=== PATIENT | male | born 1985 | race Caucasian/White ===

== ENCOUNTER 2016-04-13 13:14 | Emergency (ER) | payer MEDICARE, MEDICAID ==
[~2016-04-13 13:14] MED LIST: /ACETCOD2T PO; /MELO7TA PO; /ONDA4TA PO; LOPI600T PO; MORP5SUP PO; TYLENOL #3 PO; WELLBUTRIN PO; ZANT150T PO; ZOLO100T PO
[2016-04-13] MEDS ORDERED: PROMETHAZINE 25 MG SUPP As Ordered ONE (14:46)
--- NOTE | 2016-04-13 15:15 | EDDOCDS ---
Nurse's Notes [facility] Name: Devon Krishnan Age: 30 yrs Sex: Male : 1985 Arrival Date: 04/13/2016 Time: 13:14 Bed TR1 Private MD: Juan Antonio Inman Diagnosis: Vomiting;Adverse effect of caffeine;Anxiety disorder, unspecified Presentation: 04/13 13:29 Presenting complaint: Patient states: Pt very jittery on presentation. states he took 2 jo3 caffeine pills this morning and became jittery, nauseated, ALVAREZ to occipital area, throat tightness and light headed. The last date and time the patient was known to be well was was at. No acute neurological deficit is noted. Adult Sepsis Screening: The patient does not have new or worsening altered mentation. Patient's respiratory rate is less than 22. Systolic blood pressure is greater than 100. Patient has a qSOFA score of 0- Negative Sepsis Screen. Suicide/Homicide risk assessment- the patient denies having any suicidal and/or homicidal ideations and does not present with any other emotional, behavioral or mental health complaints. 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 Transition of care: patient was not received from another setting of care. 13:29 Acuity: BRITTANIE Level 3 jo3 13:29 Method Of Arrival: Walkin/Carried/Asstd jo3 15:13 The last date and time the patient was known to be well was on an unknown date. jf3 Triage Assessment: 13:32 General: Appears uncomfortable, Behavior is anxious, cooperative. Neurological: Level jo3 of Consciousness is awake, alert. Respiratory: Airway is patent Respiratory effort is even, unlabored. Historical: - Allergies: Ceclor; - Home Meds: 1. Omeprazole Oral once daily 2. Zoloft 100 mg Oral tab 1 tab once daily - PMHx: Anxiety; back pain; Depression; Hypercholesterolemia; Hypertension; Migraine Headaches; Seasonal Allergies; - PSHx: left ear graft; - Social history: No barriers to communication noted, The patient speaks fluent Libyan, Speaks appropriately for age, Smoking status: Electronic cigarettes. - Family history: Not pertinent. - : The pt / caregiver states he / she is not on anticoagulants. Home medication list is obtained from the patient. - Exposure Risk Screening:: None identified. Screenin:10 Screening information is obtained from the patient. Fall risk: No risks identified. jf3 Assistance ADL's: requires no assistance with activities of daily living. Abuse/DV Screen: The patient / caregiver reports he/she is: not in a situation that causes fear, pain or injury. Nutritional screening: No deficits noted. Advance Directives: Currently, there is no health care proxy. There is no active DNR order. home support is adequate. Assessment: 15:10 General: Appears in no apparent distress, comfortable, Behavior is cooperative. Pain: jf3 Location: abdomen Pain currently is 8 out of 10 on a pain scale. Neurological: Level of Consciousness is awake, alert, Oriented to person, place, time. Cardiovascular: Capillary refill < 3 seconds. Respiratory: Airway is patent Respiratory effort is even, unlabored, Respiratory pattern is regular, symmetrical. Derm: Skin is pink, warm & dry. Vital Signs: 13:16 BP 173 / 93; Pulse 118; Resp 18 S; Temp 98.7(O); Pulse Ox 98% on R/A; Weight 89.36 kg gr2 (R); Height 5 ft. 8 in. (172.72 cm) (R); Pain 6/10; 14:59 BP 181 / 110; Pulse 103; Resp 20; Temp 97.9(O); Pulse Ox 95% on R/A; Pain 9/10; jml1 15:10 BP 184 / 112 RA Sitting (man/); jf3 15:10 BP 180 / 110 LA Sitting (man/); jf3 13:16 Body Mass Index 29.95 (89.36 kg, 172.72 cm) gr2 15:10 PA Billy aware jf3 15:10 PA Billy aware, instructed to D/C pt jf3 Vitals: 13:16 Log In Time: April 13, 2016 at 13:16. gr2 ED Course: 13:16 Patient visited by Nikole Pradhan. gr2 13:16 Juan Antonio Inman DO is Private Physician. gr2 13:16 Patient moved to Waiting gr2 13:17 Patient visited by Nikole Pradhan. gr2 13:17 Patient moved to Pre RCE gr2 13:31 Triage Initiated jo3 13:33 Patient visited by Jenna Varela RN. jo3 13:33 Patient moved to PD2 / 27 jo3 13:42 Patient visited by Inocencia Ramirez. nb2 13:42 EKG done. (by ED staff). Reviewed by Rosa Lindsay PA-C. nb2 13:45 Patient moved to TR2 kc3 14:09 Patient moved to Triage 1 jf3 14:16 Eduardo Cervantes PA is PHCP. btw 14:16 Sandeep Burroughs MD is Attending Physician. btw 14:16 Patient visited by Eduardo Cervantes PA. btw 14:41 [facility] is Referral Physician. btw 14:59 Patient visited by Tai Pathak. jml1 15:08 Patient moved to TR1 jf3 15:10 The patient / caregiver is instructed regarding the plan of care and ED course. jf3 15:10 No IV's were initiated during this patient's visit. No procedures done that require jf3 assistance. Administered Medications: 15:00 Drug: Promethazine 25 mg [promethazine 25 mg rectal suppository (1 supp)] {Note: jf3 Dispensed home with pt by GLEN.} Route: MD; Order Results: There are currently no results for this order. Outcome: 14:42 Discharge ordered by Provider. btw 15:10 Discharge Assessment: Patient awake, alert and oriented x 3. No cognitive and/or jf3 functional deficits noted. Patient verbalized understanding of disposition instructions. patient administered narcotics - no. The following High Risk Discharge criteria are identified: None. Discharged to home ambulatory. Condition: good. Discharge instructions given to patient, Instructed on discharge instructions, follow up and referral plans. medication usage, Demonstrated understanding of instructions, medications, Pt was receptive of discharge instructions/ teaching. Prescriptions given X 1. No special radiology studies were completed. Property :Personal belongings accompany Pt. 15:14 Patient left the ED. jf3 Signatures: Jenna Varela RN RN Eduardo Whittaker PA PA btw Tai Pathak jml1 Nikole Pradhan gr2 Claire De SantiagoRN RN kc3 Dutch Diallo RN RN jf3 Inocencia Ramirez nb2 MTDD
--- NOTE | 2016-04-13 15:15 | EDDOCDS ---
Physician Documentation [facility] Name: Devon Krishnan Age: 30 yrs Sex: Male : 1985 Arrival Date: 04/13/2016 Time: 13:14 Bed TR1 Private MD: Juan Antonio Inman Disposition: 04/13/16 14:42 Discharged to Home/Self Care. Impression: Vomiting, Adverse effect of caffeine, Anxiety disorder, unspecified. - Condition is Stable. - Discharge Instructions: Nausea and Vomiting. - Prescriptions for Phenergan 25 mg Rectal Suppository - insert 1 suppository by RECTAL route every 6 hours As needed; 12 suppository. - Medication Reconciliation, Local Pharmacy Hours form. - [facility]; When: Call to arrange an appointment; Reason: Further diagnostic work-up, Recheck today's complaints, Continuance of care. - Problem is new. - Symptoms are unchanged. Historical: - Allergies: Ceclor; - Home Meds: 1. Omeprazole Oral once daily 2. Zoloft 100 mg Oral tab 1 tab once daily - PMHx: Anxiety; back pain; Depression; Hypercholesterolemia; Hypertension; Migraine Headaches; Seasonal Allergies; - PSHx: left ear graft; - Social history: No barriers to communication noted, The patient speaks fluent Nicaraguan, Speaks appropriately for age, Smoking status: Electronic cigarettes. - Family history: Not pertinent. - : The pt / caregiver states he / she is not on anticoagulants. Home medication list is obtained from the patient. - Exposure Risk Screening:: None identified. Vital Signs: 04/13 13:16 BP 173 / 93; Pulse 118; Resp 18 S; Temp 98.7(O); Pulse Ox 98% on R/A; Weight 89.36 kg / gr2 197.01 lbs (R); Height 5 ft. 8 in. (172.72 cm) (R); Pain 6/10; 14:59 BP 181 / 110; Pulse 103; Resp 20; Temp 97.9(O); Pulse Ox 95% on R/A; Pain 9/10; jml1 15:10 BP 184 / 112 RA Sitting (man/); jf3 15:10 BP 180 / 110 LA Sitting (man/); jf3 13:16 Body Mass Index 29.95 (89.36 kg, 172.72 cm) gr2 15:10 GLEN Cervantes aware jf3 15:10 GLEN Cervantes aware, instructed to D/C pt jf3 MDM: 13:35 ECG WITH READING ER PHYS+CARDIAG ordered. EDMS 14:37 Promethazine Suppository 25 mg MN once ordered. btw Administered Medications: 15:00 Drug: Promethazine 25 mg [promethazine 25 mg rectal suppository (1 supp)] {Note: jf3 Dispensed home with pt by PA.} Route: MN; Signatures: Dispatcher [employer] EDMS Jenna Varela,RN RN Eduardo Whittaker PA PA btw Dutch Diallo,RN RN jf3 MTDD
--- NOTE | 2016-04-15 08:55 | ECGEPIP ---
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
--- NOTE | 2016-04-15 16:15 | EDDOCDS ---
Nurse's Notes [facility] Name: Devon Concepcion Age: 30 yrs Sex: Male : 1985 Arrival Date: 04/13/2016 Time: 13:14 Bed TR1 Private MD: Juan Antonio Inman Diagnosis: Vomiting;Adverse effect of caffeine;Anxiety disorder, unspecified Presentation: 04/13 13:29 Presenting complaint: Patient states: Pt very jittery on presentation. states he took 2 jo3 caffeine pills this morning and became jittery, nauseated, ALVAREZ to occipital area, throat tightness and light headed. The last date and time the patient was known to be well was was at. No acute neurological deficit is noted. Adult Sepsis Screening: The patient does not have new or worsening altered mentation. Patient's respiratory rate is less than 22. Systolic blood pressure is greater than 100. Patient has a qSOFA score of 0- Negative Sepsis Screen. Suicide/Homicide risk assessment- the patient denies having any suicidal and/or homicidal ideations and does not present with any other emotional, behavioral or mental health complaints. 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 Transition of care: patient was not received from another setting of care. 13:29 Acuity: BIRTTANIE Level 3 jo3 13:29 Method Of Arrival: Walkin/Carried/Asstd jo3 15:13 The last date and time the patient was known to be well was on an unknown date. jf3 Triage Assessment: 13:32 General: Appears uncomfortable, Behavior is anxious, cooperative. Neurological: Level jo3 of Consciousness is awake, alert. Respiratory: Airway is patent Respiratory effort is even, unlabored. Historical: - Allergies: Ceclor; - Home Meds: 1. Omeprazole Oral once daily 2. Zoloft 100 mg Oral tab 1 tab once daily - PMHx: Anxiety; back pain; Depression; Hypercholesterolemia; Hypertension; Migraine Headaches; Seasonal Allergies; - PSHx: left ear graft; - Social history: No barriers to communication noted, The patient speaks fluent Mauritian, Speaks appropriately for age, Smoking status: Electronic cigarettes. - Family history: Not pertinent. - : The pt / caregiver states he / she is not on anticoagulants. Home medication list is obtained from the patient. - Exposure Risk Screening:: None identified. Screenin:10 Screening information is obtained from the patient. Fall risk: No risks identified. jf3 Assistance ADL's: requires no assistance with activities of daily living. Abuse/DV Screen: The patient / caregiver reports he/she is: not in a situation that causes fear, pain or injury. Nutritional screening: No deficits noted. Advance Directives: Currently, there is no health care proxy. There is no active DNR order. home support is adequate. Assessment: 15:10 General: Appears in no apparent distress, comfortable, Behavior is cooperative. Pain: jf3 Location: abdomen Pain currently is 8 out of 10 on a pain scale. Neurological: Level of Consciousness is awake, alert, Oriented to person, place, time. Cardiovascular: Capillary refill < 3 seconds. Respiratory: Airway is patent Respiratory effort is even, unlabored, Respiratory pattern is regular, symmetrical. Derm: Skin is pink, warm & dry. Vital Signs: 13:16 BP 173 / 93; Pulse 118; Resp 18 S; Temp 98.7(O); Pulse Ox 98% on R/A; Weight 89.36 kg gr2 (R); Height 5 ft. 8 in. (172.72 cm) (R); Pain 6/10; 14:59 BP 181 / 110; Pulse 103; Resp 20; Temp 97.9(O); Pulse Ox 95% on R/A; Pain 9/10; jml1 15:10 BP 184 / 112 RA Sitting (man/); jf3 15:10 BP 180 / 110 LA Sitting (man/); jf3 13:16 Body Mass Index 29.95 (89.36 kg, 172.72 cm) gr2 15:10 PA Billy aware jf3 15:10 PA Billy aware, instructed to D/C pt jf3 Vitals: 13:16 Log In Time: April 13, 2016 at 13:16. gr2 ED Course: 13:16 Patient visited by Nikole Pradhan. gr2 13:16 Juan Antonio Inman DO is Private Physician. gr2 13:16 Patient moved to Waiting gr2 13:17 Patient visited by Nikole Pradhan. gr2 13:17 Patient moved to Pre RCE gr2 13:31 Triage Initiated jo3 13:33 Patient visited by Jenna Varela RN. jo3 13:33 Patient moved to PD2 / 27 jo3 13:42 Patient visited by Inocencia Ramirez. nb2 13:42 EKG done. (by ED staff). Reviewed by Rosa Lindsay PA-C. nb2 13:45 Patient moved to TR2 kc3 14:09 Patient moved to Triage 1 jf3 14:16 Eduardo Cervantes PA is PHCP. btw 14:16 Sandeep Burroughs MD is Attending Physician. btw 14:16 Patient visited by Eduardo Cervantes PA. btw 14:41 [facility] is Referral Physician. btw 14:59 Patient visited by Tai Pathak. jml1 15:08 Patient moved to TR1 jf3 15:10 The patient / caregiver is instructed regarding the plan of care and ED course. jf3 15:10 No IV's were initiated during this patient's visit. No procedures done that require jf3 assistance. 15:48 [facility] [place] was scanned into [employer] and attached to record. lg 04/14 11:30 T-Sheet-- Draft Copy was scanned into [employer] and attached to record. gb 11:31 ECG/EKG was scanned into [employer] and attached to record. gb 04/15 09:17 EKG-ADULT Returned. 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 btw 15:10 Discharge Assessment: Patient awake, alert and oriented x 3. No cognitive and/or jf3 functional deficits noted. Patient verbalized understanding of disposition instructions. patient administered narcotics - no. The following High Risk Discharge criteria are identified: None. Discharged to home ambulatory. Condition: good. Discharge instructions given to patient, Instructed on discharge instructions, follow up and referral plans. medication usage, Demonstrated understanding of instructions, medications, Pt was receptive of discharge instructions/ teaching. Prescriptions given X 1. No special radiology studies were completed. Property :Personal belongings accompany Pt. 15:14 Patient left the ED. jf3 Signatures: Dispatcher [employer] EDMS Anna Hernandez, Reg Reg gb Adina Hernandez, Reg Reg lg Jenna Varela,RN RN jo3 Eduardo Cervantes PA PA btw Tai Pathak jml1 Nikole Pradhan gr2 Claire De Santiago,RN RN kc3 Dutch Diallo,RN RN jf3 Inocencia Ramirez2 Chart Complete MTDD
--- NOTE | 2016-04-15 16:15 | EDDOCDS ---
Physician Documentation [facility] Name: Devon Krishnan Age: 30 yrs Sex: Male : 1985 Arrival Date: 04/13/2016 Time: 13:14 Bed TR1 Private MD: Juan Antonio Inman Disposition: 04/13/16 14:42 Discharged to Home/Self Care. Impression: Vomiting, Adverse effect of caffeine, Anxiety disorder, unspecified. - Condition is Stable. - Discharge Instructions: Nausea and Vomiting. - Prescriptions for Phenergan 25 mg Rectal Suppository - insert 1 suppository by RECTAL route every 6 hours As needed; 12 suppository. - Medication Reconciliation, Local Pharmacy Hours form. - [facility]; When: Call to arrange an appointment; Reason: Further diagnostic work-up, Recheck today's complaints, Continuance of care. - Problem is new. - Symptoms are unchanged. Historical: - Allergies: Ceclor; - Home Meds: 1. Omeprazole Oral once daily 2. Zoloft 100 mg Oral tab 1 tab once daily - PMHx: Anxiety; back pain; Depression; Hypercholesterolemia; Hypertension; Migraine Headaches; Seasonal Allergies; - PSHx: left ear graft; - Social history: No barriers to communication noted, The patient speaks fluent Puerto Rican, Speaks appropriately for age, Smoking status: Electronic cigarettes. - Family history: Not pertinent. - : The pt / caregiver states he / she is not on anticoagulants. Home medication list is obtained from the patient. - Exposure Risk Screening:: None identified. Vital Signs: 04/13 13:16 BP 173 / 93; Pulse 118; Resp 18 S; Temp 98.7(O); Pulse Ox 98% on R/A; Weight 89.36 kg / gr2 197.01 lbs (R); Height 5 ft. 8 in. (172.72 cm) (R); Pain 6/10; 14:59 BP 181 / 110; Pulse 103; Resp 20; Temp 97.9(O); Pulse Ox 95% on R/A; Pain 9/10; jml1 15:10 BP 184 / 112 RA Sitting (man/); jf3 15:10 BP 180 / 110 LA Sitting (man/); jf3 13:16 Body Mass Index 29.95 (89.36 kg, 172.72 cm) gr2 15:10 GLEN Cervantes aware jf3 15:10 GLEN Cervantes aware, instructed to D/C pt jf3 MDM: 13:35 ECG WITH READING ER PHYS+CARDIAG ordered. EDMS 14:37 Promethazine Suppository 25 mg [place] once ordered. btw 15:48 [facility] [place] was scanned into [employer] and attached to record. lg 04/14 11:30 T-Sheet-- Draft Copy was scanned into [employer] and attached to record. gb 11:31 ECG/EKG was scanned into [employer] and attached to record. gb Administered Medications: 04/13 15:00 Drug: Promethazine 25 mg [promethazine 25 mg rectal suppository (1 supp)] {Note: jf3 Dispensed home with pt by PA.} Route: CA; Signatures: Dispatcher [employer] EDMS Anna Hernandez, Reg Reg gb Adina Hernandez, Reg Reg lg Jenna Varela,RN RN Eduardo Whittaker PA PA btw Dutch Diallo,RN RN jf3 The chart was reviewed and I authenticate all verbal orders and agree with the evaluation and treatment provided.Attachments: 15:48 [facility] [place] 04/14 11:30 T-Sheet-- Draft Copy gb 11:31 ECG/EKG gb Chart Complete MTDD
--- NOTE | 2016-04-15 16:15 | EDDOCDS ---
Physician Documentation [facility] Name: Devon Krishnan Age: 30 yrs Sex: Male : 1985 Arrival Date: 04/13/2016 Time: 13:14 Bed TR1 Private MD: Juan Antonio Inman Disposition: 04/13/16 14:42 Discharged to Home/Self Care. Impression: Vomiting, Adverse effect of caffeine, Anxiety disorder, unspecified. - Condition is Stable. - Discharge Instructions: Nausea and Vomiting. - Prescriptions for Phenergan 25 mg Rectal Suppository - insert 1 suppository by RECTAL route every 6 hours As needed; 12 suppository. - Medication Reconciliation, Local Pharmacy Hours form. - Follow up: [facility]; When: Call to arrange an appointment; Reason: Further diagnostic work-up, Recheck today's complaints, Continuance of care. - Problem is new. - Symptoms are unchanged. Historical: - Allergies: Ceclor; - Home Meds: 1. Omeprazole Oral once daily 2. Zoloft 100 mg Oral tab 1 tab once daily - PMHx: Anxiety; back pain; Depression; Hypercholesterolemia; Hypertension; Migraine Headaches; Seasonal Allergies; - PSHx: left ear graft; - Social history: No barriers to communication noted, The patient speaks fluent Australian, Speaks appropriately for age, Smoking status: Electronic cigarettes. - Family history: Not pertinent. - : The pt / caregiver states he / she is not on anticoagulants. Home medication list is obtained from the patient. - Exposure Risk Screening:: None identified. Vital Signs: 04/13 13:16 BP 173 / 93; Pulse 118; Resp 18 S; Temp 98.7(O); Pulse Ox 98% on R/A; Weight 89.36 kg / gr2 197.01 lbs (R); Height 5 ft. 8 in. (172.72 cm) (R); Pain 6/10; 14:59 BP 181 / 110; Pulse 103; Resp 20; Temp 97.9(O); Pulse Ox 95% on R/A; Pain 9/10; jml1 15:10 BP 184 / 112 RA Sitting (man/); jf3 15:10 BP 180 / 110 LA Sitting (man/); jf3 13:16 Body Mass Index 29.95 (89.36 kg, 172.72 cm) gr2 15:10 GLEN Cervantes aware jf3 15:10 GLEN Cervantes aware, instructed to D/C pt jf3 MDM: 13:35 ECG WITH READING ER PHYS+CARDIAG ordered. EDMS 14:37 Promethazine Suppository 25 mg CA once ordered. btw 15:48 [facility] [place] was scanned into [employer] and attached to record. lg 04/14 11:30 T-Sheet-- Draft Copy was scanned into [employer] and attached to record. gb 11:31 ECG/EKG was scanned into [employer] and attached to record. gb Administered Medications: 04/13 15:00 Drug: Promethazine 25 mg [promethazine 25 mg rectal suppository (1 supp)] {Note: jf3 Dispensed home with pt by PA.} Route: CA; Signatures: Dispatcher [employer] EDMS Anna Hernandez, Reg Reg gb Adina Hernandez, Reg Reg lg Jenna Varela,RN RN Eduardo Whittaker PA PA btw Dutch Diallo,RN RN jf3 The chart was reviewed and I authenticate all verbal orders and agree with the evaluation and treatment provided.Attachments: 15:48 [facility] [place] Agreement 04/14 11:30 T-Sheet-- Draft Copy gb 11:31 ECG/EKG gb Chart Complete MTDD
== END 2016-04-13 15:14 | disposition home or self-care (01) ==
LOC: M ED 13:14
DX: F41.9 Anxiety disorder, unspecified (principal); T43.615A Adverse effect of caffeine, initial encounter; R11.10 Vomiting, unspecified; M54.9 Dorsalgia, unspecified; F32.9 Major depressive disorder, single episode, unspecified; E78.00 Pure hypercholesterolemia, unspecified; I10 Essential (primary) hypertension; G43.909 Migraine, unspecified, not intractable, without status migrainosus; J30.9 Allergic rhinitis, unspecified; F17.210 Nicotine dependence, cigarettes, uncomplicated; Z79.899 Other long term (current) drug therapy; Z88.1 Allergy status to other antibiotic agents

== ENCOUNTER 2016-11-11 15:42 | Emergency (ER) | payer MEDICARE, MEDICAID ==
[~2016-11-11] VITALS: Ht 172.7 cm; Wt 85.5 kg
[2016-11-11 15:42] VITALS: BP 164/83
[2016-11-11] MEDS ORDERED: ZOLO50TA PO (15:55)
[2016-11-11] MEDS ORDERED: OMEP20CA3 PO (15:55)
[2017-01-06] MEDS ORDERED: TRAM50TA2 PO (10:48)
[2017-01-06] MEDS ORDERED: INVE234I IM (11:03)
[2017-01-06] MEDS ORDERED: ROZE8TAB16 PO (11:03)
[2017-01-06] MEDS ORDERED: AKWASOL OU (11:03)
[2017-01-07] MEDS ORDERED: PROP80TA PO (10:33)
[2017-01-13] MEDS ORDERED: PROP20TA PO (12:08)
[2017-01-13] MEDS ORDERED: BENZ-52 PO (12:08)
[2017-01-13] MEDS ORDERED: PANT40TA2 PO (12:08)
[2017-01-13] MEDS ORDERED: DEPA500T2 PO (12:08)
[2017-01-13] MEDS ORDERED: DIPH50CA PO (12:08)
== END 2016-11-11 17:10 | disposition left against medical advice (07) ==
LOC: M ED 15:42
DX: R10.9 Unspecified abdominal pain (principal)

== ENCOUNTER → 2016-11-25 | Outpatient (REF) | payer MEDICARE, MEDICAID ==
[~2016-11-25] MED LIST changes: +AKWASOL OU; +BACL10TA2 PO; +BENZ-52 PO; +CALC500T49 PO; +DEPA250T2 PO; +DEPA500T2 PO; +DEPLCAP PO; +DIPH50CA PO; +FISH1000 PO; +INVE234I IM; +NICO21PAT TD; +OMEP20CA3 PO; +PALI1TAB2 PO; +PANT40TA2 PO; +PROP20TA PO; +PROP80TA PO; +ROZE8TAB16 PO; +TRAM50TA2 PO; +ZOLO50TA PO; +[UNRECOGNIZED DRUG - CODE] PO
[2016-11-25 12:01] LABS: BASO % 0.3 % (0.0-1.0); EOS # 0.2 K/mm3 (0.0-0.50); EOS % 2.6 % (0.0-3.0); LARGE UNSTAINED CELL # 0.1 K/mm3 (0.0-0.4); LARGE UNSTAINED CELL % 1.3 % (0.0-4.0); LYMPH # 2.1 K/mm3 (1.5-4.5); LYMPH % 27.1 % (24.0-44.0); MEAN CORPUSCULAR HEMOGLOBIN 30.2 pg (27.0-33.0); MEAN CORPUSCULAR HGB CONC 35.3 g/dl (32.0-36.5); MEAN CORPUSCULAR VOLUME 85.7 fl (80.0-96.0); MONO # 0.3 K/mm3 (0.0-0.8); MONO % 4.4 % (0.0-5.0); NEUTROPHILS % 64.3 % (36.0-66.0); PLATELET COUNT, AUTOMATED 211 k/mm3 (150-450); WHITE BLOOD COUNT 7.7 K/mm3 (4.0-10.0)
[2016-11-25 12:53] LABS: ANION GAP 11 MEQ/L (8-16); BLOOD UREA NITROGEN 17 MG/DL (7-18); CALCIUM LEVEL 9.1 MG/DL (8.5-10.1); CARBON DIOXIDE LEVEL 26 MEQ/L (21-32); CHLORIDE LEVEL 106 MEQ/L (98-107); CHOLESTEROL LEVEL 196 MG/DL (<200); FREE T4 1.05 NG/DL (0.76-1.46); GLOMERULAR FILTRATION RATE > 60.0 (>60); GLUCOSE, FASTING 85 MG/DL (70-105); POTASSIUM SERUM 4.3 MEQ/L (3.5-5.1); SODIUM LEVEL 143 MEQ/L (136-145); TRIGLYCERIDES LEVEL 219 MG/DL (<150)
== END ==
LOC: M SFHCPLAZ 09:22
PROVIDERS: ATTEND Family Medicine
DX: Z00.00 Encounter for general adult medical examination without abnormal findings (principal); G47.9 Sleep disorder, unspecified; M62.830 Muscle spasm of back; Z11.3 Encounter for screening for infections with a predominantly sexual mode of transmission; Z79.899 Other long term (current) drug therapy
CPT/HCPCS: 36415; 80048; 80061; 83036; 84439; 84443; 85025; 87389; 87491; 87591; G0463

== ENCOUNTER 2016-12-15 23:22 | Inpatient (IN) | payer MEDICARE, MEDICAID ==
[~2016-12-15] VITALS: Ht 172.7 cm; Wt 87.0 kg
[~2016-12-15 23:22] MED LIST changes: -AKWASOL OU; -BACL10TA2 PO; -BENZ-52 PO; -CALC500T49 PO; -DEPA250T2 PO; -DEPA500T2 PO; -DEPLCAP PO; -DIPH50CA PO; -FISH1000 PO; -INVE234I IM; -NICO21PAT TD; -PALI1TAB2 PO; -PANT40TA2 PO; -PROP20TA PO; -PROP80TA PO; -ROZE8TAB16 PO; -TRAM50TA2 PO; -[UNRECOGNIZED DRUG - CODE] PO
[2016-12-15] MEDS ORDERED: DEPLCAP PO (23:51)
[2016-12-16 00:41] LABS: MEAN CORPUSCULAR HEMOGLOBIN 28.9 pg (27.0-33.0); MEAN CORPUSCULAR HGB CONC 34.3 g/dl (32.0-36.5); MEAN CORPUSCULAR VOLUME 84.3 fl (80.0-96.0); RED CELL DISTRIBUTION WIDTH 12.3 % (11.5-14.5); WHITE BLOOD COUNT 9.3 10^3/uL (4.0-10.0)
[2016-12-16] MEDS ORDERED: MOM 30ML SUSPENSION UDC PO PRN (00:45)
[2016-12-16] MEDS ORDERED: traZODone 50 MG TAB PO PRN ×2 (00:45→11:30)
[2016-12-16 01:10] LABS: METHADONE URINE NEGATIVE (NEGATIVE)
[2016-12-16 01:19] LABS: ALBUMIN 4.2 GM/DL (3.2-5.2); ALBUMIN/GLOBULIN RATIO 1.31 (1.00-1.93); ALKALINE PHOSPHATASE 49 U/L (45-117); ALT/SGPT 31 U/L (12-78); ANION GAP 6 MEQ/L (8-16); AST/SGOT 16 U/L (15-37); BILIRUBIN,DIRECT 0.1 MG/DL (0.0-0.2); BILIRUBIN,TOTAL 0.4 MG/DL (0.2-1.0); BLOOD UREA NITROGEN 10 MG/DL (7-18); CALCIUM LEVEL 8.6 MG/DL (8.5-10.1); CARBON DIOXIDE LEVEL 29 MEQ/L (21-32); CHLORIDE LEVEL 108 MEQ/L (98-107); CREATININE FOR GFR 0.81 MG/DL (0.70-1.30); GLOMERULAR FILTRATION RATE > 60.0 (>60); GLUCOSE, FASTING 97 MG/DL (70-105); POTASSIUM SERUM 3.8 MEQ/L (3.5-5.1); SODIUM LEVEL 143 MEQ/L (136-145); TOTAL PROTEIN 7.4 GM/DL (6.4-8.2)
[2016-12-16] MEDS ORDERED: FISH1000 PO (01:26)
[2016-12-16] MEDS ORDERED: [UNRECOGNIZED DRUG - CODE] PO (01:26)
[2016-12-16] MEDS ORDERED: BACL10TA2 PO (01:26)
[2016-12-16] MEDS ORDERED: CALC500T49 PO (01:26)
[2016-12-16] MEDS ORDERED: ACETAMINOPHEN 325 MG TAB PO ONE (02:00)
[2016-12-16] MEDS ORDERED: NICOTINE 21MG/24HR 1 EA TRANSDERMAL TD ONE (02:15)
[2016-12-16 04:35] VITALS: BP 140/89
[2016-12-16] MEDS ORDERED: NICOTINE 21MG/24HR 1 EA TRANSDERMAL TD SCH (09:00)
--- NOTE | 2016-12-16 10:25 | HPEPDOC ---
[facility] Medical History & Physical Date of Admission Dec 15, 2016 History and Physical PCP: [facility] ATTENDING: Dr. Ed Villagran HPI: 31yoM admitted to [facility] for unspecified depressive disorder, being medically examined today. No acute medical complaints today. Denies any fevers, chills, weakness, fatigue, ALVAREZ, CP, SOB, cough, palpitations, abdominal pain, N/V /D or changes in bowel or bladder habits. PMHx: Depression Anxiety PTSD Insomnia GERD Colitis/history of ileus 01/23 Vertigo Chronic headache TMJ dysfunction PSHX: History of tympanostomy tubes and graft as child Dental surgery SOCHX: Resides in: [facility] Marital Status: Single Kids: 1 Employment: Disabled Tobacco use: Vape ETOH: History of alcohol use Illicit Drugs: Denies IV Drug Use: Denies Tattoos done unprofessionally: Denies FAMHX: Mother: , bone cancer Father: Alive, history of CVA Children: [id number] daughter Alive, well ROS: As noted in HPI, otherwise 11pt ROS of systems reviewed and unremarkable. PE: GEN: 31 yo M, appears stated age. Well-nourished, well developed. No acute distress. Alert and oriented x 3. Pleasant, interactive. HEENT: Normocephalic, atraumatic. Pupils are equal, round, and reactive to light. Extraocular movements are intact. No nystagmus appreciated. Sclera are nonicteric. Conjunctiva without injection. Nose midline. Nasal turbinates without bogginess. EACs both patent BL. TMs both visualized and eduardo with good cone of light, no bulging or erythema. No facial asymmetry. Moist mucous membranes. Dentition fair. Pharynx pink and moist, no cobblestoning. Neck supple , trachea midline. No lymphadenopathy or thyromegaly appreciated. CHEST: Regular rate and rhythm, +S1, +S2 LUNGS: Clear to auscultation bilaterally. No wheezes, rales, or rhonchi. Breathing appears symmetric and easy. Patient is speaking in full sentences. No accessory muscle use. ABD: Round, soft, non-tender, non-distended. +Bowel sounds throughout. No rebound or guarding. No costovertebral angle tenderness. EXT: Pulses 2+ bilaterally dorsalis pedis and radial. No lower extremity edema appreciated. SKIN: [place], dry, warm. Capillary refill <2sec. No rashes. NEURO: Alert and oriented x 3. Cranial nerves III-XII are intact. No focal deficits appreciated. EKG: pending. A&P: 31yoM admitted to [facility] for unspecified depressive disorder 1. Psych. Plan per Psychiatry.Obtain baseline EKG to assure the safety of psychiatric medications as they can prolong the QT interval. 2. Nicotine dependence. Patch available. 3. GERD. Continue Prilosec 20 mg by mouth daily. 4. Follow up with PCP on discharge. 5. TMJ dysfunction/chronic headache. Continue Tylenol 650 mg every 4 hours as needed. 6. Staff member Ed present throughout exam. Vital Signs Vital Signs Date Time Temp Pulse Resp B/P (MAP) Pulse Ox O2 Delivery O2 Flow Rate FiO2 12/16/16 04:35 97.8 70 22 140/89 (106) 99 Room Air Laboratory Data Labs 24H Laboratory Tests 2 12/16/16 00:18: Anion Gap 6L, Glomerular Filtration Rate > 60.0, Calcium Level 8.6, Aspartate Amino Transf (AST/SGOT) 16, Alanine Aminotransferase (ALT/SGPT) 31, Alkaline Phosphatase 49, Total Bilirubin 0.4, Direct Bilirubin 0.1, Total Protein 7.4, Albumin 4.2, Albumin/Globulin Ratio 1.31, Thyroid Stimulating Hormone (TSH) 1.020, Salicylates Level < 1.7L, Acetaminophen Level < 2.0L, Ethyl Alcohol Level < 0.003 12/16/16 00:26: Urine Amphetamines Screen NEGATIVE, Urine Benzodiazepines Screen NEGATIVE, Urine Opiates Screen NEGATIVE, Urine Methadone Screen NEGATIVE, Urine Barbiturates Screen NEGATIVE, Urine Phencyclidine Screen NEGATIVE, Urine Cocaine Metabolite Screen NEGATIVE, Urine Cannabinoids Screen NEGATIVE CBC/BMP Laboratory Tests 12/16/16 00:18 Red Blood Count 5.53, Mean Corpuscular Volume 84.3, Mean Corpuscular Hemoglobin 28.9, Mean Corpuscular Hemoglobin Concent 34.3, Red Cell Distribution Width 12.3 Home Medications Scheduled (Deplin 15 15-90.314 mg) 1 Cap Cap, 1 CAP PO DAILY Baclofen (Baclofen) 10 Mg Tab, 10 MG PO BID Calcium (Calcium) 500 Mg Tab, 500 MG PO DAILY Fish Oil (Fish Oil) 1,000 Mg Cap, 2,000 MG PO DAILY Omeprazole (Omeprazole) 20 Mg Cap, 20 MG PO QHS Scheduled PRN (Gas Relief Ultra Strength) 180 Mg Cap, 180 MG PO Q8H PRN for GAS PAIN Allergies Coded Allergies: Cephalosporins (Verified Allergy, Mild, 06/11/12) Cefaclor (Verified Allergy, Unknown, rash, 11/11/16) Grapefruit (Verified Allergy, Unknown, 12/15/16) [place] Tree (Verified Allergy, Unknown, 12/15/16) Sasha Guardado Dec 16, 2016 10:25
[2016-12-16] MEDS: NICOTINE 21MG/24HR 1 EA TRANSDERMAL TD SCH (10:35)
[2016-12-16] MEDS: LIDOCAINE 5% (LIDODERM) PATCH TD SCH (12:27)
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
[2016-12-16] MEDS: DIVALPROEX 250MG *ER* TAB PO SCH ×2 (16:08→20:06)
[2016-12-16] MEDS: POLYVINYL ALCOHOL OPHTH SOLN 15 ML(LIQUITEARS) OU PRN ×2 (17:02→20:07)
[2016-12-16] MEDS: ACETAMINOPHEN TAB 650MG DOSE (2X325MG) PO PRN (17:04)
--- NOTE | 2016-12-16 17:43 | ECGEPIP ---
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
[2016-12-16 18:00] VITALS: BP 140/70
[2016-12-16] MEDS: RAMELTEON 8 MG TAB (ROZEREM) PO PRN (20:06)
[2016-12-16] MEDS: PALIPERIDONE 3 MG ER TAB (INVEGA) PO SCH (20:06)
[2016-12-16] MEDS: **NOTE PATIENT COMMENT** MISC XX SCH (20:43)
[2016-12-16] MEDS ORDERED: RAMELTEON 8 MG TAB (ROZEREM) PO SCH (21:00)
[2016-12-17 06:59] VITALS: BP 125/70
[2016-12-17] MEDS: LIDOCAINE 5% (LIDODERM) PATCH TD SCH (08:16)
[2016-12-17] MEDS: ACETAMINOPHEN TAB 650MG DOSE (2X325MG) PO PRN (08:16)
[2016-12-17] MEDS: NICOTINE 21MG/24HR 1 EA TRANSDERMAL TD SCH (08:16)
[2016-12-17] MEDS: DIVALPROEX 250MG *ER* TAB PO SCH ×3 (08:18→20:35)
[2016-12-17 11:07] VITALS: BP 148/85
[2016-12-17] MEDS: MAALOX 30 ML SUSP *UDC PO PRN (11:20)
--- NOTE | 2016-12-17 15:33 | MHIPNPDOC ---
[facility] Progress Note Progress Note DATE OF SERVICE: 12/17/16 HISTORY: . Patient is a 31-year-old male, who had a long psychiatric history, including Bipolar, MDD, PTSD, anxiety admitted due to active ideas to kill himself. He endorses numerous methods he has thought of to kill himself over the last several days. He has elicited paranoid delusions as reported. Patient is isolated, guarded, with constricted-blunted affect. Reported being ok, denied any current ideas of self harm or side effects of medications. VITAL SIGNS: See below. NEW TEST RESULTS: . CURRENT MEDICATIONS: See below. MENTAL STATUS EXAMINATION: General appearance: Patient is a 31-year old male, who is anxious, irritable, makes poor eye contact. Speech: , increased rate, rhythm, normal volume Thought processes: tangential Thought content: denies SI/HI, denies auditory hallucinations or other perceptual disturbances, no delusions elicited Abstract reasoning and computation: poor Description of associations: good Description of abnormal or psychotic thoughts: . Judgment: poor Insight: poor Orientation: A/O x 3 Recent and remote memory: Intact Attention span and concentration: decreased Fund of knowledge: below average Mood: "ok" Affect: constricted, almost blunted DIAGNOSES: 1. .schizoaffective disorder bipolar type versus depressive type, r/o bipolar disorder 2. . 3. . MANAGEMENT PLAN: . Continue current medications/treatment individual supportive therapy, group therapy, milleu therapy Discharge plan as per primary team TIME SPENT: 25 minutes. Vital Signs Vital Signs Date Time Temp Pulse Resp B/P (MAP) Pulse Ox O2 Delivery O2 Flow Rate FiO2 12/17/16 11:07 66 14 148/85 (106) 95 Room Air 12/17/16 06:59 97.4 Current Medications Current Medications Acetaminophen (Tylenol Tab) 650 mg Q6HP PRN PO HEADACHE or DISCOMFORT Last administered on 12/17/16 08:16; Start 12/16/16 at 00:45; Stop 01/15/17 at 00:44 Al Hydrox/Mg Hydrox/Simethicone (Mylanta) 30 ml Q4HP PRN PO HEARTBURN/ INDIGESTION Last administered on 12/17/16 11:20; Start 12/16/16 at 00:45; Stop 01/15/17 at 00:44 Artificial Tears (Akwa Tears) 2 drop TIDP PRN OU DRY EYES Last administered on 12/16/16 20:07; Start 12/16/16 at 11:30; Stop 01/15/17 at 11:29 Divalproex Sodium (Depakote Er) 250 mg TID PO Last administered on 12/17/16 08 :18; Start 12/16/16 at 16:00; Stop 01/15/17 at 15:59 Home Med (Med Rec Complete!) ASDIRECTED XX ; Start 12/16/16 at 01:30; Stop 12/16/16 at 01:31; Status DC Lidocaine (Lidoderm Patch) 1 patch DAILY TD Last administered on 12/17/16 08: 16; Start 12/16/16 at 09:00; Stop 01/15/17 at 08:59 Magnesium Hydroxide (Milk Of Magnesia) 30 ml DAILYPRN PRN PO CONSTIPATION; Start 12/16/16 at 00:45; Stop 01/15/17 at 00:44 Nicotine (Nicoderm Cq 21mg) 1 patch DAILY TD ; Start 12/16/16 at 09:00; Stop at 09:00; Status DC Nicotine (Nicoderm Cq 21mg) 1 patch DAILY TD Last administered on 12/17/16 08: 16; Start 12/16/16 at 09:00; Stop 01/15/17 at 08:59 Non-Formulary Medication ( See Comment Field Below ) REMOVE LIDODERM PATCH DAILY@21 XX Last administered on 12/16/16 20:43; Start 12/16/16 at 21:00; Stop 01/15/17 at 20:59 Paliperidone (Invega) 3 mg QHS PO Last administered on 12/16/16 20:06; Start 12/16/16 at 21:00; Stop 01/15/17 at 20:59 Ramelteon (Rozerem) 8 mg QHS PO ; Start 12/16/16 at 21:00; Stop 12/16/16 at 21: 00; Status DC Ramelteon (Rozerem) 8 mg QHS PRN PO INSOMNIA Last administered on 12/16/16 20: 06; Start 12/16/16 at 21:00; Stop 01/15/17 at 20:59 Trazodone HCl (Desyrel) 50 mg QHSP PRN PO INSOMNIA; Start 12/16/16 at 00:45; Stop 01/15/17 at 00:44; Status Cancel Trazodone HCl (Desyrel) 75 mg QHSP PRN PO INSOMNIA; Start 12/16/16 at 11:30; Stop 01/15/17 at 11:29; Status Cancel Allergies Coded Allergies: Cephalosporins (Verified Allergy, Mild, 06/11/12) Cefaclor (Verified Allergy, Unknown, rash, 11/11/16) Grapefruit (Verified Allergy, Unknown, 12/15/16) [place] Tree (Verified Allergy, Unknown, 12/15/16) HEVER JAY MD Dec 17, 2016 15:26
[2016-12-17] MEDS: POLYVINYL ALCOHOL OPHTH SOLN 15 ML(LIQUITEARS) OU PRN (16:19)
[2016-12-17] MEDS: PALIPERIDONE 3 MG ER TAB (INVEGA) PO SCH (20:34)
[2016-12-17] MEDS: RAMELTEON 8 MG TAB (ROZEREM) PO PRN (20:34)
[2016-12-17] MEDS: **NOTE PATIENT COMMENT** MISC XX SCH (21:45)
[2016-12-18 06:39] VITALS: BP 115/56
[2016-12-18] MEDS: DIVALPROEX 250MG *ER* TAB PO SCH ×4 (09:06→20:26)
[2016-12-18] MEDS: NICOTINE 21MG/24HR 1 EA TRANSDERMAL TD SCH (09:07)
[2016-12-18] MEDS: LIDOCAINE 5% (LIDODERM) PATCH TD SCH (09:09)
[2016-12-18] MEDS: **NOTE PATIENT COMMENT** MISC XX SCH (10:02)
[2016-12-18] MEDS: ACETAMINOPHEN TAB 650MG DOSE (2X325MG) PO PRN ×2 (11:15→17:58)
--- NOTE | 2016-12-18 14:52 | MHIPNPDOC ---
[facility] Progress Note Progress Note DATE OF SERVICE: 12/18/16 HISTORY: . Patient is a 31-year-old male, who had a long psychiatric history, including Bipolar, MDD, PTSD, anxiety admitted due to active ideas to kill himself. He has elicited paranoid delusions as reported. Patient is isolated, guarded, with constricted-blunted affect. Reported being ok, denied any current ideas of self harm or side effects of medications. VITAL SIGNS: See below. NEW TEST RESULTS: . CURRENT MEDICATIONS: See below. MENTAL STATUS EXAMINATION: General appearance: Patient is a 31-year old male, who is anxious, irritable, makes poor eye contact. Speech: , increased rate, rhythm, normal volume Thought processes: tangential Thought content: denies SI/HI, denies auditory hallucinations or other perceptual disturbances, no delusions elicited Abstract reasoning and computation: poor Description of associations: good Description of abnormal or psychotic thoughts: . Judgment: poor Insight: poor Orientation: A/O x 3 Recent and remote memory: Intact Attention span and concentration: decreased Fund of knowledge: below average Mood: "ok" Affect: constricted, almost blunted DIAGNOSES: 1. .schizoaffective disorder bipolar type versus depressive type, r/o bipolar disorder 2. . 3. . MANAGEMENT PLAN: . Continue current medications/treatment individual supportive therapy, group therapy, milleu therapy Discharge plan as per primary team TIME SPENT: 25 minutes. Vital Signs Vital Signs Date Time Temp Pulse Resp B/P (MAP) Pulse Ox O2 Delivery O2 Flow Rate FiO2 12/18/16 06:39 97.8 66 18 115/56 (75) 12/17/16 11:07 95 Room Air Current Medications Current Medications Acetaminophen (Tylenol Tab) 650 mg Q6HP PRN PO HEADACHE or DISCOMFORT Last administered on 12/18/16 11:15; Start 12/16/16 at 00:45; Stop 01/15/17 at 00:44 Al Hydrox/Mg Hydrox/Simethicone (Mylanta) 30 ml Q4HP PRN PO HEARTBURN/ INDIGESTION Last administered on 12/17/16 11:20; Start 12/16/16 at 00:45; Stop 01/15/17 at 00:44 Artificial Tears ([place]wa Tears) 2 drop TIDP PRN OU DRY EYES Last administered on 12/17/16 16:19; Start 12/16/16 at 11:30; Stop 01/15/17 at 11:29 Divalproex Sodium (Depakote Er) 250 mg TID PO Last administered on 12/18/16 09 :06; Start 12/16/16 at 16:00; Stop 01/15/17 at 15:59 Home Med (Med Rec Complete!) ASDIRECTED XX ; Start 12/16/16 at 01:30; Stop 12/16/16 at 01:31; Status DC Lidocaine (Lidoderm Patch) 1 patch DAILY TD Last administered on 12/18/16 09: 09; Start 12/16/16 at 09:00; Stop 01/15/17 at 08:59 Magnesium Hydroxide (Milk Of Magnesia) 30 ml DAILYPRN PRN PO CONSTIPATION Last administered on 12/18/16 12:28; Start 12/16/16 at 00:45; Stop 01/15/17 at 00:44 Nicotine (Nicoderm Cq 21mg) 1 patch DAILY TD ; Start 12/16/16 at 09:00; Stop at 09:00; Status DC Nicotine (Nicoderm Cq 21mg) 1 patch DAILY TD Last administered on 12/18/16 09: 07; Start 12/16/16 at 09:00; Stop 01/15/17 at 08:59 Non-Formulary Medication ( See Comment Field Below ) REMOVE LIDODERM PATCH DAILY@21 XX Last administered on 12/18/16 10:02; Start 12/16/16 at 21:00; Stop 01/15/17 at 20:59 Paliperidone (Invega) 3 mg QHS PO Last administered on 12/17/16 20:34; Start 12/16/16 at 21:00; Stop 01/15/17 at 20:59 Ramelteon (Rozerem) 8 mg QHS PO ; Start 12/16/16 at 21:00; Stop 12/16/16 at 21: 00; Status DC Ramelteon (Rozerem) 8 mg QHS PRN PO INSOMNIA Last administered on 12/17/16 20: 34; Start 12/16/16 at 21:00; Stop 01/15/17 at 20:59 Trazodone HCl (Desyrel) 50 mg QHSP PRN PO INSOMNIA; Start 12/16/16 at 00:45; Stop 01/15/17 at 00:44; Status Cancel Trazodone HCl (Desyrel) 75 mg QHSP PRN PO INSOMNIA; Start 12/16/16 at 11:30; Stop 01/15/17 at 11:29; Status Cancel Allergies Coded Allergies: Cephalosporins (Verified Allergy, Mild, 06/11/12) Cefaclor (Verified Allergy, Unknown, rash, 11/11/16) Grapefruit (Verified Allergy, Unknown, 12/15/16) [place] Tree (Verified Allergy, Unknown, 12/15/16) HEVER JAY MD Dec 18, 2016 14:51
[2016-12-18 18:00] VITALS: BP 170/77
[2016-12-18] MEDS: PALIPERIDONE 3 MG ER TAB (INVEGA) PO SCH (20:26)
[2016-12-18] MEDS: RAMELTEON 8 MG TAB (ROZEREM) PO PRN (21:10)
[2016-12-19] MEDS: NICOTINE 21MG/24HR 1 EA TRANSDERMAL TD SCH (07:58)
[2016-12-19] MEDS: LIDOCAINE 5% (LIDODERM) PATCH TD SCH (07:59)
[2016-12-19] MEDS: DIVALPROEX 250MG *ER* TAB PO SCH (07:59)
[2016-12-19] MEDS: ACETAMINOPHEN TAB 650MG DOSE (2X325MG) PO PRN ×2 (08:02→21:14)
[2016-12-19] MEDS: MAALOX 30 ML SUSP *UDC PO PRN (16:24)
[2016-12-19 18:00] VITALS: BP 132/61
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
[2016-12-19] MEDS: RAMELTEON 8 MG TAB (ROZEREM) PO PRN (20:46)
[2016-12-19] MEDS ORDERED: DIVALPROEX 250MG *ER* TAB PO SCH (21:00)
[2016-12-19] MEDS: **NOTE PATIENT COMMENT** MISC XX SCH (21:00)
[2016-12-19] MEDS ORDERED: PALIPERIDONE 3 MG ER TAB (INVEGA) PO SCH (21:00)
[2016-12-20 06:51] VITALS: BP 150/69
[2016-12-20] MEDS: NICOTINE 21MG/24HR 1 EA TRANSDERMAL TD SCH (08:03)
[2016-12-20] MEDS: LIDOCAINE 5% (LIDODERM) PATCH TD SCH ×2 (08:05→09:53)
[2016-12-20] MEDS ORDERED: PALIPERIDONE PALMITATE 234 MG/1.5 ML INJ (INVEGA SUSTENNA)(J2426) IM SCH (09:00)
[2016-12-20] MEDS ORDERED: DIVALPROEX 250MG *ER* TAB PO SCH ×2 (09:00)
[2016-12-20] MEDS: MAALOX 30 ML SUSP *UDC PO PRN (11:20)
[2016-12-20] MEDS: ACETAMINOPHEN TAB 650MG DOSE (2X325MG) PO PRN (14:03)
[2016-12-20] MEDS ORDERED: PALI1TAB2 PO (14:17)
[2016-12-20] MEDS ORDERED: AKWASOL OU (14:17)
[2016-12-20] MEDS ORDERED: INVE234I IM (14:17)
[2016-12-20] MEDS ORDERED: DEPA250T2 PO ×2 (14:17)
[2016-12-20] MEDS ORDERED: ROZE8TAB16 PO (14:17)
[2016-12-20] MEDS ORDERED: NICO21PAT TD (14:17)
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
[2017-01-06] MEDS ORDERED: TRAM50TA2 PO (10:48)
[2017-01-06] MEDS ORDERED: INVE234I IM (11:03)
[2017-01-06] MEDS ORDERED: AKWASOL OU (11:03)
[2017-01-06] MEDS ORDERED: ROZE8TAB16 PO (11:03)
[2017-01-07] MEDS ORDERED: PROP80TA PO (10:33)
[2017-01-13] MEDS ORDERED: DEPA500T2 PO (12:08)
[2017-01-13] MEDS ORDERED: PANT40TA2 PO (12:08)
[2017-01-13] MEDS ORDERED: PROP20TA PO (12:08)
[2017-01-13] MEDS ORDERED: DIPH50CA PO (12:08)
[2017-01-13] MEDS ORDERED: BENZ-52 PO (12:08)
== END 2016-12-20 15:35 | disposition home or self-care (01) | DRG 882 ==
LOC: M ED 23:22 → M ED INP 12-16 00:44 → M PSY 12-16 04:35
PROVIDERS: ADMIT Psychiatry & Neurology Psychiatry; ATTEND Psychiatry & Neurology Psychiatry
DX: F43.10 Post-traumatic stress disorder, unspecified (principal); K21.9 Gastro-esophageal reflux disease without esophagitis; F25.9 Schizoaffective disorder, unspecified; F31.9 Bipolar disorder, unspecified; M26.69 Other specified disorders of temporomandibular joint; R51 Headache; F41.9 Anxiety disorder, unspecified; F84.9 Pervasive developmental disorder, unspecified; Z79.899 Other long term (current) drug therapy; Z88.1 Allergy status to other antibiotic agents; Z91.048 Other nonmedicinal substance allergy status; Z88.8 Allergy status to other drugs, medicaments and biological substances

== ENCOUNTER → 2016-12-22 | Outpatient (CLI) | payer MEDICARE, MEDICAID ==
[~2016-12-22] MED LIST changes: +AKWASOL OU; +BACL10TA2 PO; +BENZ-52 PO; +CALC500T49 PO; +DEPA250T2 PO; +DEPA500T2 PO; +DEPLCAP PO; +DIPH50CA PO; +FISH1000 PO; +INVE234I IM; +NICO21PAT TD; +PALI1TAB2 PO; +PANT40TA2 PO; +PROP20TA PO; +PROP80TA PO; +ROZE8TAB16 PO; +TRAM50TA2 PO; +[UNRECOGNIZED DRUG - CODE] PO
[2016-12-22 13:34] LABS: BASO % 0.2 % (0.0-1.0); EOS # 0.2 10^3/uL (0.0-0.50); EOS % 1.4 % (0.0-3.0); IMMATURE GRANULOCYTE % 0.3 % (0-0); LYMPH # 1.8 10^3/uL (1.5-4.5); LYMPH % 17.1 % (24.0-44.0); MEAN CORPUSCULAR HEMOGLOBIN 28.1 pg (27.0-33.0); MEAN CORPUSCULAR HGB CONC 33.1 g/dl (32.0-36.5); MEAN CORPUSCULAR VOLUME 84.8 fl (80.0-96.0); MONO # 0.5 10^3/uL (0.0-0.8); MONO % 4.8 % (0.0-5.0); NEUTROPHILS # 8.2 10^3/uL (1.8-7.7); NEUTROPHILS % 76.2 % (36.0-66.0); PLATELET COUNT, AUTOMATED 174 10^3/uL (150-450); WHITE BLOOD COUNT 10.8 10^3/uL (4.0-10.0)
[2016-12-22 14:18] LABS: ALBUMIN 3.8 GM/DL (3.2-5.2); ALBUMIN/GLOBULIN RATIO 1.19 (1.00-1.93); ALKALINE PHOSPHATASE 51 U/L (45-117); ALT/SGPT 31 U/L (12-78); ANION GAP 8 MEQ/L (8-16); AST/SGOT 16 U/L (15-37); BILIRUBIN,DIRECT 0.1 MG/DL (0.0-0.2); BILIRUBIN,TOTAL 0.4 MG/DL (0.2-1.0); BLOOD UREA NITROGEN 14 MG/DL (7-18); CARBON DIOXIDE LEVEL 28 MEQ/L (21-32); CHLORIDE LEVEL 105 MEQ/L (98-107); CREATININE FOR GFR 0.77 MG/DL (0.70-1.30); GLOMERULAR FILTRATION RATE > 60.0 (>60); GLUCOSE, FASTING 133 MG/DL (70-105); POTASSIUM SERUM 3.8 MEQ/L (3.5-5.1); SODIUM LEVEL 141 MEQ/L (136-145)
== END ==
LOC: M LAB 12-21 12:07
PROVIDERS: ATTEND Psychiatry & Neurology Psychiatry
DX: F25.9 Schizoaffective disorder, unspecified (principal); F43.10 Post-traumatic stress disorder, unspecified; Z51.81 Encounter for therapeutic drug level monitoring; Z79.899 Other long term (current) drug therapy

== ENCOUNTER 2017-01-29 13:04 | Emergency (ER) | payer MEDICARE, MEDICAID ==
[~2017-01-29] VITALS: Ht 172.7 cm; Wt 86.4 kg
[2017-01-29 14:39] LABS: MEAN CORPUSCULAR HEMOGLOBIN 28.8 pg (27.0-33.0); MEAN CORPUSCULAR HGB CONC 33.9 g/dl (32.0-36.5); PLATELET COUNT, AUTOMATED 163 10^3/uL (150-450); RED CELL DISTRIBUTION WIDTH 12.1 % (11.5-14.5); WHITE BLOOD COUNT 6.8 10^3/uL (4.0-10.0)
[2017-01-29 14:58] LABS: METHADONE URINE NEGATIVE (NEGATIVE)
[2017-01-29 15:09] LABS: ALBUMIN 3.8 GM/DL (3.2-5.2); ALBUMIN/GLOBULIN RATIO 1.19 (1.00-1.93); ALKALINE PHOSPHATASE 45 U/L (45-117); ALT/SGPT 22 U/L (12-78); ANION GAP 5 MEQ/L (8-16); AST/SGOT 8 U/L (7-37); BILIRUBIN,DIRECT < 0.1 MG/DL (0.0-0.2); BILIRUBIN,TOTAL 0.4 MG/DL (0.2-1.0); BLOOD UREA NITROGEN 10 MG/DL (7-18); CALCIUM LEVEL 8.6 MG/DL (8.5-10.1); CARBON DIOXIDE LEVEL 30 MEQ/L (21-32); CHLORIDE LEVEL 109 MEQ/L (98-107); CREATININE FOR GFR 0.83 MG/DL (0.70-1.30); GLOMERULAR FILTRATION RATE > 60.0 (>60); GLUCOSE, FASTING 83 MG/DL (70-105); POTASSIUM SERUM 4.1 MEQ/L (3.5-5.1); SODIUM LEVEL 144 MEQ/L (136-145)
[2017-01-29] MEDS ORDERED: LORazepam 1 MG TAB PO STA (15:55)
[2017-01-29 16:51] VITALS: BP 146/90
== END 2017-01-29 16:54 | disposition home or self-care (01) ==
LOC: M ED 13:04
DX: F41.9 Anxiety disorder, unspecified (principal); Z79.899 Other long term (current) drug therapy
CPT/HCPCS: 36415; 80048; 80076; 80164; 80307; 84443; 85027; 99284; G0480

== ENCOUNTER 2017-02-18 18:00 | Emergency (ER) | payer MEDICARE, MEDICAID ==
[~2017-02-18] VITALS: Ht 172.7 cm; Wt 87.3 kg
[2017-02-18] MEDS ORDERED: NS 1,000 ML IV SCH (18:31)
[2017-02-18] MEDS ORDERED: GASTROGRAFIN SOLUTION 30ML (Q9963) As Ordered ONE (18:40)
[2017-02-18] MEDS ORDERED: MORPHINE 4 MG/ML 1ML SYRINGE IV ONE (18:45)
[2017-02-18] MEDS ORDERED: ONDANSETRON 4MG/2ML VIAL (J2405) IV ONE (18:45)
[2017-02-18] MEDS ORDERED: PROMETHAZINE INJ 25 MG/ML VIAL (J2550) IV ONE (19:00)
[2017-02-18] MEDS ORDERED: GASTROGRAFIN SOLUTION 30ML (Q9963) PO ONE ×2 (19:00→19:30)
[2017-02-18 19:04] LABS: BASO # 0.1 10^3/uL (0.0-0.2); BASO % 0.3 % (0.0-1.0); EOS # 0.3 10^3/uL (0.0-0.50); IMMATURE GRANULOCYTE % 0.5 % (0-0); LYMPH # 4.4 10^3/uL (1.5-4.5); LYMPH % 26.8 % (24.0-44.0); MEAN CORPUSCULAR HEMOGLOBIN 29.2 pg (27.0-33.0); MEAN CORPUSCULAR HGB CONC 33.9 g/dl (32.0-36.5); MEAN CORPUSCULAR VOLUME 86.2 fl (80.0-96.0); MONO # 1.3 10^3/uL (0.0-0.8); MONO % 7.9 % (0.0-5.0); NEUTROPHILS # 10.2 10^3/uL (1.8-7.7); NEUTROPHILS % 62.5 % (36.0-66.0); PLATELET COUNT, AUTOMATED 280 10^3/uL (150-450); RED CELL DISTRIBUTION WIDTH 12.2 % (11.5-14.5); WHITE BLOOD COUNT 16.3 10^3/uL (4.0-10.0)
[2017-02-18 19:16] LABS: ALBUMIN 4.5 GM/DL (3.2-5.2); ALBUMIN/GLOBULIN RATIO 1.15 (1.00-1.93); ALKALINE PHOSPHATASE 50 U/L (45-117); ALT/SGPT 21 U/L (12-78); ANION GAP 10 MEQ/L (8-16); AST/SGOT 12 U/L (7-37); BILIRUBIN,DIRECT 0.2 MG/DL (0.0-0.2); BILIRUBIN,TOTAL 0.9 MG/DL (0.2-1.0); BLOOD UREA NITROGEN 13 MG/DL (7-18); CALCIUM LEVEL 8.8 MG/DL (8.5-10.1); CARBON DIOXIDE LEVEL 27 MEQ/L (21-32); CHLORIDE LEVEL 104 MEQ/L (98-107); CREATININE FOR GFR 0.93 MG/DL (0.70-1.30); GLOMERULAR FILTRATION RATE > 60.0 (>60); GLUCOSE, FASTING 109 MG/DL (70-105); POTASSIUM SERUM 4.2 MEQ/L (3.5-5.1); SODIUM LEVEL 141 MEQ/L (136-145); TOTAL PROTEIN 8.4 GM/DL (6.4-8.2)
[2017-02-18] MEDS ORDERED: ISOVUE-370 76% 100ML VIAL (Q9967) As Ordered ONE (20:11)
--- NOTE | 2017-02-18 20:50 | REPUSA ---
CT of the abdomen and pelvis with contrast Clinical statement: Pain. Technique: Multiple axial CT images were obtained from the base of the lungs through the floor of the pelvis utilizing 5 mm axial slices after administration of oral and nonionic intravenous contrast. C oronal and sagittal reconstructions were also obtained. Comparison: 10/19/2014. Findings: Chest: The visualized lung bases are clear. Abdomen: The liver, spleen, pancreas, kidneys, gallbladder, and adrenal glands are unremarkable. The aorta is within normal limits. There is no evidence of abdominal lymphadenopathy or ascites. Pelvis: The bowel is unremarkable, with no obstructive or inflammatory changes. The appendix is malinda l. The urinary bladder is within normal limits. The other pelvic structures appear grossly intact. Th ere is no evidence of pelvic lymphadenopathy or ascites. Bones: There are no suspicious osseous abnormalities seen. Impression: Unremarkable CT examination of the abdomen and pelvis.
[2017-02-18] MEDS ORDERED: PROM12.55 PO (21:00)
[2017-02-18 21:33] VITALS: BP 134/73
== END 2017-02-18 22:13 | disposition home or self-care (01) ==
LOC: M ED 18:00
DX: R11.10 Vomiting, unspecified (principal); R19.7 Diarrhea, unspecified
CPT/HCPCS: 74177; 80048; 80076; 80164; 83690; 85025; 87507; 96374; 96375; 99284; Q9963; Q9967

== ENCOUNTER → 2017-02-24 | Outpatient (REF) | payer MEDICARE, MEDICAID ==
[~2017-02-24] MED LIST changes: +PROM12.55 PO
[2017-02-24 16:05] LABS: BASO % 0.4 % (0.0-1.0); EOS # 0.5 10^3/uL (0.0-0.50); EOS % 5.1 % (0.0-3.0); IMMATURE GRANULOCYTE % 0.8 % (0-0); LYMPH # 2.9 10^3/uL (1.5-4.5); LYMPH % 27.5 % (24.0-44.0); MEAN CORPUSCULAR HEMOGLOBIN 28.3 pg (27.0-33.0); MEAN CORPUSCULAR HGB CONC 33.3 g/dl (32.0-36.5); MEAN CORPUSCULAR VOLUME 84.9 fl (80.0-96.0); MONO % 8.9 % (0.0-5.0); NEUTROPHILS # 6.1 10^3/uL (1.8-7.7); NEUTROPHILS % 57.3 % (36.0-66.0); PLATELET COUNT, AUTOMATED 213 10^3/uL (150-450); RED CELL DISTRIBUTION WIDTH 12.5 % (11.5-14.5); WHITE BLOOD COUNT 10.6 10^3/uL (4.0-10.0)
[2017-02-24 16:25] LABS: ANION GAP 7 MEQ/L (8-16); BLOOD UREA NITROGEN 17 MG/DL (7-18); CALCIUM LEVEL 8.5 MG/DL (8.5-10.1); CARBON DIOXIDE LEVEL 27 MEQ/L (21-32); CHLORIDE LEVEL 107 MEQ/L (98-107); CREATININE FOR GFR 0.74 MG/DL (0.70-1.30); GLOMERULAR FILTRATION RATE > 60.0 (>60); GLUCOSE, FASTING 77 MG/DL (70-105); POTASSIUM SERUM 3.8 MEQ/L (3.5-5.1); SODIUM LEVEL 141 MEQ/L (136-145)
== END ==
LOC: M SFHCPLAZ 14:44
DX: R19.7 Diarrhea, unspecified (principal)

== ENCOUNTER 2017-04-06 21:43 | Emergency (ER) | payer MEDICARE, MEDICAID | END 2017-04-07 02:32 | disposition left against medical advice (07) | LOC: M ED 21:43 | DX: Z53.29 Procedure and treatment not carried out because of patient's decision for other reasons (principal) ==

== ENCOUNTER → 2017-04-10 | Outpatient (REF) | payer MEDICARE, MEDICAID ==
[2017-04-10 17:40] LABS: ALBUMIN/GLOBULIN RATIO 1.29 (1.00-1.93); ALKALINE PHOSPHATASE 46 U/L (45-117); ALT/SGPT 27 U/L (12-78); AST/SGOT 15 U/L (7-37); BILIRUBIN,DIRECT 0.1 MG/DL (0.0-0.2); BILIRUBIN,TOTAL 0.5 MG/DL (0.2-1.0); CHOLESTEROL LEVEL 156 MG/DL (<200); CHOLESTEROL RISK RATIO 5.379 (<5); HDL CHOLESTEROL 29 MG/DL (>40); LDL CHOLESTEROL 47.2 MG/DL (<100); LIPASE 137 U/L (73-393); NON-HDL-C 127 MG/DL; TOTAL PROTEIN 7.1 GM/DL (6.4-8.2); TRIGLYCERIDES LEVEL 399 MG/DL (<150)
[2017-04-10 18:57] LABS: BASO % 0.3 % (0.0-1.0); EOS # 0.4 10^3/uL (0.0-0.50); EOS % 4.6 % (0.0-3.0); HEMATOCRIT 44.4 % (42.0-52.0); HEMOGLOBIN 15.3 g/dl (14.0-18.0); IMMATURE GRANULOCYTE # 0.1 10^3/uL (0-0); IMMATURE GRANULOCYTE % 0.5 % (0-0); LYMPH # 3.4 10^3/uL (1.5-4.5); LYMPH % 34.8 % (24.0-44.0); MEAN CORPUSCULAR HEMOGLOBIN 29.9 pg (27.0-33.0); MEAN CORPUSCULAR HGB CONC 34.5 g/dl (32.0-36.5); MEAN CORPUSCULAR VOLUME 86.7 fl (80.0-96.0); MONO # 0.7 10^3/uL (0.0-0.8); MONO % 7.6 % (0.0-5.0); NEUTROPHILS % 52.2 % (36.0-66.0); PLATELET COUNT, AUTOMATED 226 10^3/uL (150-450); RED BLOOD COUNT 5.12 10^6/uL (4.30-6.10); RED CELL DISTRIBUTION WIDTH 12.5 % (11.5-14.5); WHITE BLOOD COUNT 9.7 10^3/uL (4.0-10.0)
[2017-04-10 20:19] LABS: ESTIMATED AVERAGE GLUCOSE 108 MG/DL (60-110); HEMOGLOBIN A1c 5.4 %
== END ==
LOC: M LABDRAWP 16:31
DX: F25.1 Schizoaffective disorder, depressive type (principal); F43.10 Post-traumatic stress disorder, unspecified; Z79.899 Other long term (current) drug therapy
CPT/HCPCS: 83690

== ENCOUNTER 2017-04-20 09:16 | Outpatient (RCR) | payer MEDICARE, MEDICAID | END 2017-05-10 | LOC: M PT 09:16 | DX: Z51.89 Encounter for other specified aftercare (principal); M54.41 Lumbago with sciatica, right side | CPT/HCPCS: 97110 ==

== ENCOUNTER → 2017-08-03 | Outpatient (CLI) | payer MEDICARE, MEDICAID ==
[2017-08-03 16:31] LABS: BASO % 0.3 % (0.0-1.0); EOS # 0.1 10^3/uL (0.0-0.50); EOS % 1.2 % (0.0-3.0); HEMOGLOBIN 16.3 g/dl (13.5-17.5); IMMATURE GRANULOCYTE % 0.3 % (0-3.0); LYMPH # 1.7 10^3/uL (1.5-4.5); LYMPH % 26.9 % (24.0-44.0); MEAN CORPUSCULAR HEMOGLOBIN 28.6 pg (27.0-33.0); MEAN CORPUSCULAR VOLUME 84.4 fl (80.0-96.0); MONO # 0.8 10^3/uL (0.0-0.8); MONO % 12.8 % (0.0-5.0); NEUTROPHILS # 3.8 10^3/uL (1.8-7.7); NEUTROPHILS % 58.5 % (36.0-66.0); PLATELET COUNT, AUTOMATED 187 10^3/uL (150-450); RED BLOOD COUNT 5.69 10^6/uL (4.30-6.10); RED CELL DISTRIBUTION WIDTH 11.9 % (11.5-14.5); WHITE BLOOD COUNT 6.4 10^3/uL (4.0-10.0)
[2017-08-03 16:52] LABS: ALBUMIN 4.3 GM/DL (3.2-5.2); ALBUMIN/GLOBULIN RATIO 1.23 (1.00-1.93); ALKALINE PHOSPHATASE 60 U/L (45-117); ALT/SGPT 30 U/L (12-78); ANION GAP 8 MEQ/L (8-16); AST/SGOT 20 U/L (7-37); BILIRUBIN,TOTAL 0.6 MG/DL (0.2-1.0); BLOOD UREA NITROGEN 12 MG/DL (7-18); CALCIUM LEVEL 8.9 MG/DL (8.5-10.1); CARBON DIOXIDE LEVEL 27 MEQ/L (21-32); CHLORIDE LEVEL 105 MEQ/L (98-107); CREATININE FOR GFR 0.92 MG/DL (0.70-1.30); FREE T4 0.95 NG/DL (0.76-1.46); GLOMERULAR FILTRATION RATE > 60.0 (>60); GLUCOSE, FASTING 79 MG/DL (70-100); POTASSIUM SERUM 3.8 MEQ/L (3.5-5.1); SODIUM LEVEL 140 MEQ/L (136-145); THYROID STIMULATING HORMONE 0.615 uIU/ML (0.358-3.740); TOTAL PROTEIN 7.8 GM/DL (6.4-8.2)
[2017-08-09 00:06] LABS: Lyme Disease IgG/IgM Antibodie <0.91 ISR (0.00-0.90); Lyme Disease IgM Ab Quantitati <0.80 index (0.00-0.79)
== END ==
LOC: M WUC 13:22
DX: R53.83 Other fatigue (principal)
CPT/HCPCS: 84443

== ENCOUNTER → 2017-12-05 | Outpatient (REF) | payer MEDICARE, MEDICAID ==
[2017-12-05 15:40] LABS: HEMATOCRIT 50.9 % (42.0-52.0); HEMOGLOBIN 16.9 g/dl (13.5-17.5); MEAN CORPUSCULAR HEMOGLOBIN 28.9 pg (27.0-33.0); MEAN CORPUSCULAR HGB CONC 33.2 g/dl (32.0-36.5); PLATELET COUNT, AUTOMATED 238 10^3/uL (150-450); RED BLOOD COUNT 5.85 10^6/uL (4.30-6.10); RED CELL DISTRIBUTION WIDTH 13.2 % (11.5-14.5)
[2017-12-05 16:17] LABS: ERYTHROCYTE SEDIMENTATION RATE 2 mm/hr (0-15)
[2017-12-05 17:13] LABS: CPK CREATINE PHOSPHOKINASE 36 U/L (39-308)
== END ==
LOC: M SFHCPLAZ 14:08
DX: R52 Pain, unspecified (principal); F41.9 Anxiety disorder, unspecified
CPT/HCPCS: 82550

== ENCOUNTER → 2018-08-28 | Outpatient (REF) | payer MEDICARE, MEDICAID ==
[~2018-08-28] MED LIST changes: -/ACETCOD2T PO; -/MELO7TA PO; -/ONDA4TA PO; +ACET1TAB15 PO; +MOBI4TAB PO; +ONDA-1 PO; -PANT40TA2 PO; +PANT40TA3 PO; -PROM12.55 PO; +PROM12.56 PO; +TYLE500T78 PO
[2018-08-28 16:44] LABS: FREE T4 0.88 NG/DL (0.76-1.46); THYROID STIMULATING HORMONE 0.623 uIU/ML (0.358-3.740)
[2018-08-29 09:54] LABS: THYROID PEROXIDASE ANTIBODY 30.8 U/ML (<60.0)
[2018-09-04 00:06] LABS: THYROID STIMULATING IMMUNOGLOB <0.10 IU/L (0.00-0.55); TSH RECEPTOR ASSAY 0.57 IU/L (0.00-1.75)
== END ==
LOC: M SFHCPLAZ 14:42
PROVIDERS: ATTEND Family Medicine
DX: H05.243 Constant exophthalmos, bilateral (principal)
CPT/HCPCS: 36415; 83519; 84439; 84443; 84445; 86376; G0463

== ENCOUNTER → 2019-05-24 | Outpatient (REF) | payer MEDICARE, MEDICAID ==
[~2019-05-24] MED LIST changes: +OMEP1CAP73 PO; -OMEP20CA3 PO
[2019-05-24 13:41] LABS: ALBUMIN 4.3 GM/DL (3.2-5.2); ALT/SGPT 37 U/L (12-78); BILIRUBIN,TOTAL 0.5 MG/DL (0.2-1.0); BLOOD UREA NITROGEN 21 MG/DL (7-18); CALCIUM LEVEL 9.1 MG/DL (8.5-10.1); CARBON DIOXIDE LEVEL 26 MEQ/L (21-32); CHLORIDE LEVEL 105 MEQ/L (98-107); CHOLESTEROL LEVEL 202 MG/DL (<200); CHOLESTEROL RISK RATIO 5.611 (<5); CREATININE FOR GFR 0.94 MG/DL (0.70-1.30); FREE T4 1.11 NG/DL (0.76-1.46); GLOMERULAR FILTRATION RATE > 60.0 (>60); GLUCOSE, FASTING 94 MG/DL (70-100); HDL CHOLESTEROL 36 MG/DL (>40); LDL CHOLESTEROL 107 MG/DL (<100); NON-HDL-C 166 MG/DL; POTASSIUM SERUM 4.2 MEQ/L (3.5-5.1); SODIUM LEVEL 138 MEQ/L (136-145); THYROID STIMULATING HORMONE 0.512 uIU/ML (0.358-3.740); TOTAL 25(OH) VITAMIN D 24.5 NG/ML (30.0-100.0); TOTAL PROTEIN 7.7 GM/DL (6.4-8.2); TRIGLYCERIDES LEVEL 293 MG/DL (<150)
== END ==
LOC: M SFHCPLAZ 11:32
PROVIDERS: ATTEND Nurse Practitioner Family
DX: Z13.220 Encounter for screening for lipoid disorders (principal); Z13.21 Encounter for screening for nutritional disorder; G43.709 Chronic migraine without aura, not intractable, without status migrainosus; E66.9 Obesity, unspecified; Z79.899 Other long term (current) drug therapy

== ENCOUNTER → 2019-09-12 | Outpatient (CLI) | payer MEDICARE, MEDICAID ==
--- NOTE | 2019-09-12 13:47 | REP ---
Bilateral TIB-fib views. History: Anterior lower leg pain after walking 28 miles 2 weeks ago. Findings: There are focal areas of periosteal reaction in the medial cortex of each proximal tibia consistent with stress fracture with healing. There is also similar chronic periosteal reaction at the proximal metaphysis of the fibula on the left. No acute fracture is seen. No bony destructive lesion is seen. Impression: Findings consistent with bilateral proximal tibial and left proximal fibular healing stress fractures. Electronically Signed by Rupert Schafer MD 09/12/2019 01:38 P
== END ==
LOC: M WUC 13:17
PROVIDERS: ATTEND Physician Assistant
DX: M79.661 Pain in right lower leg (principal); M79.662 Pain in left lower leg

== ENCOUNTER → 2020-02-20 | Outpatient (REF) | payer MEDICARE ==
[~2020-02-20] MED LIST changes: +PANT40TA29 PO; -PANT40TA3 PO
== END ==
LOC: M LAB REF 15:47
PROVIDERS: ATTEND Nurse Practitioner Family
DX: R30.0 Dysuria (principal)

== ENCOUNTER → 2020-04-19 | Outpatient (CLI) | payer MEDICARE ==
[~2020-04-19] MED LIST changes: +KLON1TAB PO; +SERT50TA29 PO
== END ==
LOC: M LABSMTC 08:00
PROVIDERS: ATTEND Anesthesiology
DX: Z01.812 Encounter for preprocedural laboratory examination (principal); Z20.822 Contact with and (suspected) exposure to COVID-19

== ENCOUNTER 2020-04-24 08:36 | Day surgery (SDC) | payer MEDICARE ==
[~2020-04-24] VITALS: Ht 175.3 cm; Wt 92.5 kg
[~2020-04-24 08:36] MED LIST changes: +LIDOCAINE 2% 100MG/5ML SDV (FOR ANES.) As Ordered ONE; +NS 1,000 ML IV ONE; +fentaNYL 100 MCG/2 ML INJECTION (J3010) As Ordered ONE; +propofoL 200 MG/20 ML VIAL As Ordered ONE
--- OUTSIDE RECORDS SUMMARY | 2020-04-24 08:41 | CCD ---
Author Author [facility] ems Organization [facility] ems Address Unknown Phone Unavailable Care Team Providers Care Studio Hand Name Role Phone Catarina Dee Unavailable PROBLEMS Type Condition ICD9-CM Code [id number] Code Onset Dates Condition S tatus W/U Status Risk SNOMED Code Notes Problem Chronic migraine without aur a without status migrainosus, not intractable G43.709 Active confirmed 521650917 Problem Other allergic rhinitis J30.89 Active confirmed 548670620 Problem Anxiety F41.9 Active confirmed 51050394 Problem Acute suppurative otitis med ia of left ear without spontaneous rupture of tympanic membrane, recurrence not specified H66.002 Act veronique confirmed 60581489 Problem Adjustment disorder with depressed mood F43.21 Active confirmed 72995448 Problem Akathisia G25.71 Active confirmed 174623883 Problem Ear infection H66.90 Active confirmed 031133 001 Problem Skin pain R20.8 Active confirmed 509444002 Problem Other atopic dermatitis L20.89 Active confirmed 88474350 Problem Atopic dermatitis and related condition L20.9 Active confirmed 54877329 Problem Vitamin D deficiency E55.9 Active confirmed 49946849 Problem 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 Active confirmed 623123244 Problem Mixed hyperlipidemia E78.2 Active confirmed 558464200 Problem Other chronic pain G89.29 Active confirmed 8 2531239 Problem Constant exophthalmos of both eyes H05.243 Activ e confirmed 26880227 Problem Chronic GERD K21.9 Active confirmed 9796910 09 Problem BMI 30.0-30.9,adult Z68.30 Active confirmed 553084066 Problem Obesity (BMI 30-39.9) E66.9 Active confirmed 291461539 ALLERGIES Allergen (clinical drug ingredient) Drug/Non Drug Allergy do cumented on EMR Reaction Allergy Type Onset Date Status Grapefruit Hives Non Drug Allergy Active ceclor Anaphylaxis Drug Allergy Active paliperidone Invega Sustenna([facility] Code:[address]-98) Akathisia Drug Allergy Active ENCOUNTERS from 1984 to 2020-04-20 Encounter Location Date Provider Diagnosis [facility] Nara [address] [place] [address] 04 Apr, 2 021 [facility] IMMUNIZATIONS Vaccine Route Administration Date Status TDAP IM Intramuscular Apr 21, 2015 Administered Influenza (6mo & up) Fluzone IM Intramuscular Dec 02, 2014 Ad ministered SOCIAL HISTORY Tobacco Use: Social History Observation Description Date Details (start date - stop date) Former Smoker Sex Assigned At : Social History Observation Description Sex Assigned At Unknown Education: Question Answer Notes Level of Education: High School Audit Question Answer Notes Total Score: 0 Interpretation: Alcohol Education Language: Question Answer Notes Languages spoken: Telugu Adventist: Question Answer Notes Adventist 33 None Drug and Alcohol Question Answer Notes Total Score: 0 Interpretation: No problems reported BMI Care Goal Follow-Up Question Answer Notes Above Normal BMI Follow-Up Dietary management educatio n, guidance, and counseling Tobacco Use: Question Answer Notes Are you a: former smoker uses vap cig Additional Findings: Tobacco User Moderate cigarette smoker (10-19 cigs/day) REASON FOR REFERRAL No Information VITAL SIGNS No information MEDICATIONS Medication SIG (Take, Route, Frequency, Duration) Notes Start Da te End Date Status Pantoprazole Sodium 40 MG 1 tablet Orally Once a day for 90 Active ProAir HFA 108 (90 Base) mcg/act 2 puffs as needed Inh alation before bedtime for 30 day(s) Sep, Active Melatonin 10 MG as directed Orally at bed night for 30 day(s) Jun, Not-Taking Vitamin D3 25 MCG (1000 UT) 1 tablet Orally Once a day for 30 da y(s) Jun, Active Clonazepam 1 mg 1 tablet Orally Once a day as needed for 30 Active Aquaphor - as directed Externally as directed for 30 days Aug, Not-Taking Hydrocortisone 2.5 % 1 application to affected ar ea Externally to affected areas of body/face Twice a day for 30 days Aug, Not-Taking Epinastine HCl 0.05 % 1 drop into affected eye Oph thalmic Twice a day for 30 days Sep, Not-Taking Zoloft 50 MG 1 tablet Orally Once a day Active Ketoconazole 2 % as directed Externally 2-3x/week x 4 weeks for 30 day(s) Dec, Not-Taking Montelukast Sodium 10 MG 1 tablet Orally Once a day for 30 day(s ) Sep, Not-Taking Fish Oil 1000 MG 1 capsule Orally Once a day Not-Taking Bonnie-[place] Plus Allergy 25 MG 1 tablet as needed Ora lly every 8 hrs for 30 day(s) July, Not-Taking Emergen-C Immune - Orally Not-Ta jeison Benzoyl Peroxide 10 % as directed Externally Daily for 30 days Nov, Not-Taking Desloratadine 5 MG 1 tablet Orally Once a day for 30 day(s) Aug, Not-Taking Azelastine HCl 0.1 % 1 puff in each nostril Nasally Twice a day for 30 day(s) Jun, Active PROCEDURES No Information RESULTS No Results REASON FOR VISIT question MEDICAL (GENERAL) HISTORY Type Description Date Medical History HARLEEN Medical History depression Medical History Colitis Medical History Vertigo Medical History Migraine headaches Medical History TMJ dysfunction Medical History Back Pain Medical History Lumbago with sciatica, right side Medical History Lumbago with sciatica, left side Medical History Severe single current episod e of major depressive disorder, without psychotic features Medical History Seqasonal allergies (spring, summer, fal l) Surgical History dental surgery 10/2001 Surgical History ear graft Hospitalization History anxiety several time Hospitalization History pancreatitis Hospitalization History gastroenteritis Hospitalization History [facility] Goals Section No Information Health Concerns No Information MEDICAL EQUIPMENT No Information MENTAL STATUS No Information FUNCTIONAL STATUS No Information ASSESSMENTS No Information PLAN OF TREATMENT Medication Medication Name Sig Start Date Stop Date ProAir HFA 108 (90 Base) mcg/act 2 puffs as needed Inh alation before bedtime for 30 day(s) Sep, Azelastine HCl 0.1 % 1 puff in each nostril Nasally Twice a day for 30 day(s) Jun, Vitamin D3 25 MCG (1000 UT) 1 tablet Orally Once a day for 3 0 day(s) Jun, Pantoprazole Sodium 40 MG 1 tablet Orally Once a day for 90 Insurance Providers Payer Name Payer Address Payer Phone Insured Name Patient Relati onship to Insured Coverage Start Date Coverage End Date [facility] [address] [facility] [phone] [employer] self MEDICAID [employer] [address] [facility] [address] [employer]JA [employer] self
--- OUTSIDE RECORDS SUMMARY | 2020-04-24 08:41 | CCD ---
Author Author Devon Woods Organization Unknown Address [address] [address] Phone Care Team Providers Care Internal Carver Name Role Phone Tina Woods PCP Chief Complaint and Reason for Visit Chief Complaint Allergies, Adverse Reactions, Alerts Concept Allergy Name Reaction Severity Onset Date Status Documentation Date Phone Number Npid Taxonomy Code Taxonomy Desc Author Last Name Author Fi rst Name Concept Type 105124 buspirone unspecified 10/01/2018 Active 08/30/2018 [id number] Nurse Practitioner Calvin Harrison RXNORM Problem List Concept Problem Description Status Start Date Created Date Resolv ed Date Snomed Code F33.1 Major Depressive Disorder, Recurrent episode, Moderate Active 04/23/2020 Z72.0 Tobacco Use Disorder, Mild Active 04/23/2020 Medications No Data in Section Social History Social History Element Description Concept Effective Date Smoking Status Unknown if ever smoked [id number] 97862955 Immunizations No Data in Section Vital Signs No Data in Section Procedures Date Concept Id Description Targeted Site Concept Targeted Site Concept Type 04/21/2020 68746 Brief Individual Psychotherapy - 30 min CPT Patient has no history of implantable de vices Encounters Encounter Start Date End Date Encounter Type Description Diagnosis Di agnosis Desc Location Author First Name Author Last Name Npid Taxonomy Cod e Taxonomy Desc Phone Number Location Addr1 Location Addr2 Location [facility] Location Sta Location Zip [address] 04/21/2020 04/21/2020 23391 Brief Individual Psychoth erapy - 30 min F33.1 Major depressive disorder, recurrent, moderate Communi ty [facility] Chuck Wilder [phone] [id number] Paving Contractor [id number] [address] [place], [place] 1 [facility] [address] Plan of Treatment No Data in Section Lab Results No Data in Section Instructions No Data in Section Insurance Providers Insurance Id Policy Effective Date Policy Thru Date Company [employer] [id number] 2017 [facility] [id number] 2011 MEDICAID
--- OUTSIDE RECORDS SUMMARY | 2020-04-24 08:42 | CCD ---
Author Author [facility] em[facility] Organization [facility] ems Address Unknown Phone Unavailable Care Team Providers Care Windows Consultant Name Role Phone Catarina Dee Unavailable PROBLEMS Type Condition ICD9-CM Code [id number] Code Onset Dates Condition S tatus W/U Status Risk SNOMED Code Notes Problem Chronic migraine without aur a without status migrainosus, not intractable G43.709 Active confirmed 602451868 Problem Other allergic rhinitis J30.89 Active confirmed 932361333 Problem Anxiety F41.9 Active confirmed 45421136 Problem Acute suppurative otitis med ia of left ear without spontaneous rupture of tympanic membrane, recurrence not specified H66.002 Act veronique confirmed 54698559 Problem Adjustment disorder with depressed mood F43.21 Active confirmed 39323829 Problem Akathisia G25.71 Active confirmed 482831900 Problem Ear infection H66.90 Active confirmed 106119 001 Problem Skin pain R20.8 Active confirmed 071616754 Problem Other atopic dermatitis L20.89 Active confirmed 00012530 Problem Atopic dermatitis and related condition L20.9 Active confirmed 31811967 Problem Vitamin D deficiency E55.9 Active confirmed 74717734 Problem 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 Active confirmed 037670617 Problem Mixed hyperlipidemia E78.2 Active confirmed 600210170 Problem Other chronic pain G89.29 Active confirmed 8 9990868 Problem Constant exophthalmos of both eyes H05.243 Activ e confirmed 94328717 Problem Chronic GERD K21.9 Active confirmed 8101587 09 Problem BMI 30.0-30.9,adult Z68.30 Active confirmed 298052453 Problem Obesity (BMI 30-39.9) E66.9 Active confirmed 955463008 ALLERGIES Allergen (clinical drug ingredient) Drug/Non Drug Allergy do cumented on EMR Reaction Allergy Type Onset Date Status Grapefruit Hives Non Drug Allergy Active ceclor Anaphylaxis Drug Allergy Active paliperidone Invega Sustenna([facility] Code:[address]-47) Akathisia Drug Allergy Active ENCOUNTERS from 1984 to 2020-04-17 Encounter Location Date Provider Diagnosis [facility] Nara [address] [place] [address] 04 Apr, 2 021 [facility] IMMUNIZATIONS Vaccine Route Administration Date Status TDAP [...] Education Language: Question Answer Notes Languages spoken: German Hoahaoism: Question Answer Notes Hoahaoism 33 None Drug and Alcohol Question Answer [...] 1 capsule Orally Once a day Not-Taking Bonnie-[place] Plus Allergy 25 MG 1 tablet as [...] Information RESULTS No Results REASON FOR VISIT s/e with Modern[employer] MEDICAL (GENERAL) HISTORY Type Description Date Medical [...] History pancreatitis Hospitalization History gastroenteritis Hospitalization History [facility] Goals Section No Information Health Concerns No [...] Insured Coverage Start Date Coverage End Date [facility] [address] [facility] [id number] [employer] self MEDICAID [employer] [address] [facility] [address] [employer] self
--- OUTSIDE RECORDS SUMMARY | 2020-04-24 08:42 | CCD | Continuity of Care Document ---
Author Devon Sorto M.D. Organization Unknown Address [address] [place] [address] Phone [phone] Care Team Providers Care Jet Blade Polisher Name Role Phone Luiz Catarina Lior AUTM [phone] Problems Active Problems Provider Date Refractory migraine without aura Collins Matute M.D. Onset: 08/08/2019 Dizziness and giddiness Collins Matute M.D. Onset: 0 Visual disturbance Collins Matute M.D. Onset: 08/08/2019 Obstructive sleep apnea syndrome Collins Matute M.D. Onset: 02/25/2020 Social History Type Date Description Comments Sex Unknown Tobacco Use Start: Unknown Patient has never smoked Allergies, Adverse Reactions, Alerts Active Allergies Reaction Severity Comments Date Cefaclor Rash, SOB 08/08/2019 Grapefruit 08/08/2019 Topiramate Made headaches worse 020 Medications Active Medications SIG Qnty Indications Ordering Provide r Date Rizatriptan Benzoate 10mg Tablets take 1 tablet by mouth two times a day as needed for migraines maximum daily dose = 2 tablets 12tabs Collins Matute M.D. 08/08/2019 Immunizations Description No Information Available Vital Signs Date Vital Result Comment 08/08/2019 10:20am Height 68 inches 5'8" Weight 201.00 lb BMI (Body Mass Index) 30.6 kg/m2 [place] Body Weight 154 lb Results Description No Information Available Procedures Description No Information Available Medical Devices Description No Information Available Encounters Type Date Location Provider Dx Diagnosis Office Visit 02/25/2020 1:45p Main office - [place] Matt Comer G43.711 Chronic migraine w/o aura, intractable, w status migrainosus G47.33 Obstructive sleep apnea (renae lt) (pediatric) R42 Dizziness and giddiness H53.8 Other visual disturbances Assessments Date Code Description Provider 02/25/2020 G43.711 Chronic migraine wit hout aura, intractable, with status migrainosus Collins Matute M.D. 02/25/2020 G47.33 Obstructive sleep apnea (adult) (pediatric) Collins Matute M.D. 02/25/2020 R42 Dizziness and giddiness Collins pang M.D. 02/25/2020 H53.8 Other visual disturbances Collins Matute M.D. 10/24/2019 G47.33 Obstructive sleep apnea (adult) (pediatric) Collins Matute M.D. 10/24/2019 G47.34 Idiopathic sleep rel ated nonobstructive alveolar hypoventilation Collins Matute M.D. Plan of Treatment Future Appointment(s):* 09/01/2020 12:15 pm - Collins Matute M.D. at Main office - [place] Functional Status Description No Information Available Mental Status Description No Information Available Referrals Description No Information Available
--- OUTSIDE RECORDS SUMMARY | 2020-04-24 08:42 | CCD | Continuity of Care Document ---
Author Author Devon JERONIMO M.D. Organization Unknown Address [address] [facility], [address] [place] [address] Phone [phone] Care Team Providers Care Environmental Test Technician Name Role Phone AUTM Catarina Edwards Froylan AUTM [phone] Problems Active Problems Provider Date Generalized abdominal pain Ed Prado MD Onset: 2015 Gastrointestinal tract finding Ed Prado MD Onset: Abdominal pain Ed Prado MD Onset: 01/01/2016 Intestinal obstruction Ed Prado MD Onset: 01/01/2016 Acute pancreatitis Ed Prado MD Onset: 01/01/2016 Refractory migraine without aura Spencer Spencer MD Onset: 03/02/2016 Labyrinthitis, unspecified ear Spencer Spencer MD Onset: Other specified disorders of temporomandibular joint Spencer Spencer MD Onset: 03/02/2016 Social History Type Date Description Comments Sex Unknown Smokeless Tobacco Never Used Smokeless Tobacco ETOH Use Denies alcohol use Recreational Drug Use Denies Drug Use Tobacco Use Start: Unknown End: Unknown Patient is a former smoker Allergies, Adverse Reactions, Alerts Active Allergies Reaction Severity Comments Date Ceclor 04/02/2013 Medications Active Medications SIG Qnty Indications Ordering Provide r Date Zoloft 50mg Tablets 1 po qd Unknown Ibuprofen 600mg Tablets 1 by mouth three times a day with meals as needed for pain Unknow n Tylenol 325mg Tablets 2 tab by mouth every 4-6 hours as needed for pain Unknown Pantoprazole Sodium 40mg Tablets DR coleman Unknown Immunizations Description No Information Available Vital Signs Date Vital Result Comment 03/31/2020 9:29am BP Systolic 150 mmHg BP Diastolic 80 mmHg Height 68 inches 5'8" Weight 212.00 lb BMI (Body Mass Index) 32.2 kg/m2 [employer] Body Weight 154 lb Weight 96.163 kg BSA (Body Surface Area) 2.09 m2 09/20/2019 11:08am Body Temperature 97.3 F Height 68 inches 5'8" Weight 205.00 lb BMI (Body Mass Index) 31.2 kg/m2 [employer] Body Weight 154 lb Weight 92.988 kg BSA (Body Surface Area) 2.07 m2 Results Description No Information Available Procedures Description No Information Available Medical Devices Description No Information Available Encounters Description No Information Available Assessments Description No Information Available Plan of Treatment No Information Available Functional Status Description No Information Available Mental Status Description No Information Available Referrals Refer to Reason for Referral Status Appt Date Huan Jeronimo M.D. blood in stool Created 03/[address] [place] [address], [address] [place] [address] [phone]
--- OUTSIDE RECORDS SUMMARY | 2020-04-24 08:42 | CCD | Continuity of Care Document ---
Author Author Devon DURAN BULK SEALER Organization Unknown Address [address] [place] [address] Phone [phone] Care Team Providers Care Experimental Rocketsled Mechanic Name Role Phone Ed Prado MD AUTM [phone] [facility] CTR AUTM Young Bernstein MD AUTM [phone] [facility] Orth AUTM [phone] [facility] Publi AUTM [phone] Problems Description No Information Available Social History Type Date Description Comments Sex Unknown ETOH Use Denies alcohol use Tobacco Use Start: Unknown End: Unknown Patient is a former smoker now Vapes Smoking Status Reviewed: 02/20/20 Patient is a former smoker no w Vapes Allergies, Adverse Reactions, Alerts Active Allergies Reaction Severity Comments Date Ceclor 06/07/2012 Grapefruit 11/28/2017 Clindamycin 08/09/2019 Medications Active Medications SIG Qnty Indications Ordering Provide r Date Zoloft 100mg Tablets 1 po qd Unknown Pantoprazole Sodium Unknown Klonopin prn Unknown History Medications Naproxen 500mg Tablets take one tab by mouth twice a day with food 60tabs M79.662 Dano Miller M.D. 09/12/2019 - 02/11/2020 Cyclobenzaprine HCL 10mg Tablets take one at bedtime 14tabs M79.662 Dano Huizar JR., M.D. 04/2019 - 02/11/2020 Tizanidine HCL 4mg Tablets take one tablet every 8 hours as needed. 14tabs Dano Huizar JR., M.D. 09/12/2019 - 02/11/2020 Immunizations Description No Information Available Vital Signs Date Vital Result Comment 02/20/2020 9:25am BP Systolic 130 mmHg BP Diastolic 92 mmHg Heart Rate 95 /min Respiratory Rate 20 /min O2 % BldC Oximetry 96 % Body Temperature 98.2 F Weight 205.00 lb Height 68 inches 5'8" BMI (Body Mass Index) 31.2 kg/m2 Pain Level 7 09/12/2019 1:06pm BP Systolic 160 mmHg BP Diastolic 97 mmHg Heart Rate 88 /min O2 % BldC Oximetry 97 % Body Temperature 98.3 F Weight 207.00 lb Height 68 inches 5'8" BMI (Body Mass Index) 31.5 kg/m2 Pain Level 7 Results Test Acquired Date Facility Test Result H/L Range Note Laboratory test finding 02/20/2020 [facility] [address] [place] [address] [phone] Urine Culture <pending> Procedures Description No Information Available Medical Devices Description No Information Available Encounters Type Date Location Provider Dx Diagnosis Office Visit 02/20/2020 8:50a Main Office Ruby Duran NP R30. 0 Dysuria K59.00 Constipation, unspecified M79.643 Pain in unspecified hand Office Visit 09/12/2019 12:45p Main Office GLEN Orellana M79 .662 Pain in left lower leg M79.661 Pain in right lower leg Assessments Date Code Description Provider 02/20/2020 R30.0 Dysuria Ruby conrad NP 02/20/2020 K59.00 Constipation, unspecified Ruby Duran NP 02/20/2020 M79.643 Pain in unspecified hand Ruby Duran NP 09/12/2019 M79.662 Pain in left lower leg GLEN Orellana 09/12/2019 M79.661 Pain in right lower leg GLEN Orellana Plan of Treatment No Information Available Functional Status Description No Information Available Mental Status Description No Information Available Referrals Refer to Dr Reason for Referral Status Appt Date Young Bernstein MD Closed [address] [place] [address] [phone]
--- OUTSIDE RECORDS SUMMARY | 2020-04-24 08:42 | CCD ---
Author Author Devon Watson Organization Unknown Address [address] [place] [address] Phone Care Team Providers Care Drivability Technician Name Role Phone Jennifer Watson PCP Allergies, Adverse Reactions, Alerts Concept Allergy Name Reaction Severity Onset Date Status Documentation Date Phone Number Npid Taxonomy Code Taxonomy Desc Author Last Name Author Fi rst Name Concept Type 428614 buspirone unspecified 10/01/2018 Active 08/30/2018 3157 [id number] Nurse Practitioner Calvin Harrison RXNORM Problem List Concept Problem Description Status Start Date Created Date Resolv ed Date Snomed Code F33.0 Major Depressive Disorder, Recurrent episode, Mild Act veronique 06/13/2018 06/13/2018 F43.12 Post-traumatic stress disorder, chronic Active 07/19/2018 07/19/2018 F84.0 Autism Spectrum Disorder Active 02/06/2019 02/06/2019 Medications Rx Norm Medication Route Route Concept Start Date Stop Date Dosage Jack quency Duration Formula Strength Dosage Form Dosage Form Code Dosage Description Medication Id Account Npid Author First Name Author Last Name Taxonomy Code Taxonomy Desc Phone Number [id number] Klonopin by mouth [id number] 01/21/2020 02/20/2020 once a day 30 1 m g tablet as needed [id number] [id number] Christy Simpson [id number] Nurse Luis Alberto escobedo [phone] Zoloft by mouth [id number] 01/21/2020 04/20/2020 every evening 30 50 mg tablet [id number] Christy Simpson [id number] Nurse Luis Alberto escobedo [id number] Social History Social History Element Description Concept Effective Date Smoking Status Unknown if ever smoked [id number] 54347977 Immunizations No Data in Section Vital Signs No Data in Section Procedures Date Concept Id Description Targeted Site Concept Targeted Site Concept Type 02/04/2020 38501-90 [id number]"Psychotherapy CPT Patient has no history of implantable de vices Encounters Encounter Start Date End Date Encounter Type Description Diagnosis Di agnosis Desc Location Author First Name Author Last Name Npid Taxonomy Cod e Taxonomy Desc Phone Number Location Addr1 Location Addr2 Location [facility] Location Sta te Location [facility] [address] 02/04/2020 02/04/2020 816[address]-33 [id number]"Psychothera py F33.0 Major depressive disorder, recurrent, mild [facility] Walter Rodriguez [id number] Pneumatic Tester Mechanic [phone] [address] [facility] [address] Plan of Treatment No Data in Section Lab Results No Data in Section Instructions No Data in Section Insurance Providers Insurance Id Policy Effective Date Policy Thru Date Company Jason luque [id number] 2017 Dual Complete Me dicare Community Plan [id number] 2011 MEDICAID
--- OUTSIDE RECORDS SUMMARY | 2020-04-24 08:42 | CCD | Continuity of Care Document ---
Author Devon Sorto M.D. Organization Unknown Address [address] [place] [address] Phone [phone] Care Team Providers Care Dramatic Agent Name Role Phone Luiz Catarina Lior AUTM [phone] Problems Active Problems Provider Date Refractory migraine [...] lb BMI (Body Mass Index) 30.6 kg/m2 [place] Body Weight 154 lb Results Description No Information Available Procedures Description No Information Available Medical Devices Description No Information Available Encounters Type Date Location Provider Dx Diagnosis Office Visit 02/25/2020 1:45p Main office - [place] Matt Comer G43.711 Chronic migraine w/o aura, [...] hypoventilation Collins Matute M.D. Plan of Treatment No Information Available Functional Status Description No Information Available Mental Status Description No Information Available Referrals Description No Information Available
--- OUTSIDE RECORDS SUMMARY | 2020-04-24 08:42 | CCD ---
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 Calvin Harrison RXNORM Problem List [...] Name Taxonomy Code Taxonomy Desc Phone Number [id number] Klonopin by mouth [id number] 01/21/2020 02/20/2020 once a day 30 1 m g tablet as needed 98745 [id number] Christy Simpson [id number] Nurse Luis Alberto escobedo [phone] [id number] Zoloft by mouth [id number] 01/21/2020 04/20/2020 every evening 30 50 mg tablet 00700 [id number] Christy Simpson [id number] Nurse Luis Alberto escobedo [phone] Social History Social History Element Description Concept Effective Date Smoking Status Unknown if ever smoked [id number] Immunizations No Data in Section Vital Signs No Data in Section Procedures Date Concept Id Description Targeted Site Concept Targeted Site Concept Type 02/18/2020 95466-00 TEMPMHCTelemed 30" Psychotherapy CPT Patient has no history of implantable de vices Encounters Encounter Start Date End Date Encounter Type Description Diagnosis Di agnosis Desc Location Author First Name Author Last Name Npid Taxonomy Cod e Taxonomy Desc Phone Number Location Addr1 Location Addr2 Location [facility] Location Sta te Location [facility] [id number] 02/18/2020 02/18/2020 87734-77 TEMPMHCTelemed 30" Psychothe rapy F33.0 Major depressive disorder, recurrent, mild 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
--- OUTSIDE RECORDS SUMMARY | 2020-04-24 08:42 | CCD | Continuity of Care Document ---
Author Author Devon DURAN FINGERPRINT CLERK Organization Unknown Address [address] [place] [address] Phone [phone] Care Team Providers Care Nuclear Engineering Technician Name Role Phone Ed Prado MD AUTM [phone] [facility] AUTM Young Bernstein MD AUTM [phone] [facility] Orth AUTM [phone] [facility] AUTM [phone] Problems Description No Information Available Social History [...] H/L Range Note Laboratory test finding 02/20/2020 [place] [id number] [phone] Urine Culture (SEE NOTE) 1, 2 1 No Rx 2 FULL REPORT IN LAB NOTES (eCW and [facility]). NO GROWTH Procedures Description No Information Available Medical Devices [...] to Reason for Referral Status Appt Date Young Bernstein MD Closed [address] [place] [address] [phone]
--- OUTSIDE RECORDS SUMMARY | 2020-04-24 08:42 | CCD | Continuity of Care Document ---
Author Author Devon DURAN DOLLY PUSHER Organization Unknown Address [address] [place] [address] Phone [phone] Care Team Providers Care Locomotive Operator Helper Name Role Phone Ed Prado MD AUTM [phone] [facility] CTR AUTM [phone] Young Bernstein MD AUTM [phone] [facility] Orth AUTM [phone] [facility] Pub[facility] AUTM [phone] Problems Description No Information Available Social History [...] H/L Range Note Laboratory test finding 02/20/2020 [facility] [address] [place] [address] [phone] Urine Culture <pending> Procedures Description No Information Available Medical Devices Description No Information Available Encounters Type Date Location Provider Dx Diagnosis Office Visit 09/12/2019 12:45p Main Office GLEN Orellana M79 .662 Pain in left lower leg M79.661 Pain in right lower leg Assessments Date Code Description Provider 02/20/2020 R30.0 Dysuria Ruby conrad NP 09/12/2019 M79.662 Pain in left lower leg GLEN Orellana 09/12/2019 M79.661 Pain in right lower leg GLEN Orellana Plan of Treatment No Information Available Functional Status Description No Information Available Mental Status Description No Information Available Referrals Refer to Reason for Referral Status Appt Date Young Bernstein MD Closed [address] [place] [address] [phone]
--- OUTSIDE RECORDS SUMMARY | 2020-04-24 08:43 | CCD ---
Author Author [facility] Organization [facility] Address Unknown Phone Unavailable Care Team Providers Care Preventive Maintenance Engineer Name Role Phone Karlie Lopez MD Unavailable Unavailable Karlie Lopez MD Unavailable Unavailable Karlie Lopez MD Unavailable Unavailable Karlie Lopez MD Unavailable Unavailable Karlie Lopez MD Unavailable Unavailable Karlie Lopez MD Unavailable Unavailable Karlie Lopez MD Unavailable Unavailable Karlie Lopez MD Unavailable Unavailable Karlie Lopez MD Unavailable Unavailable Karlie Lopez MD Unavailable Unavailable Karlie Lopez MD Unavailable Unavailable Karlie Lopez MD Unavailable Unavailable Mollison, Karlie Kumari MD Unavailable Unavailable Mollison, Karlie Kumari MD Unavailable Unavailable Mollison, Karlie Kumari MD Unavailable Unavailable Mollison, Karlie Kumari MD Unavailable Unavailable Mollison, Karlie Kumari MD Unavailable Unavailable Mollison, Karlie Kumari MD Unavailable Unavailable Mollison, Karlie Kumari MD Unavailable Unavailable Mollison, Karlie Kumari MD Unavailable Unavailable Mollison, Karlie Kumari MD Unavailable Unavailable Mollison, Kalrie Kumari MD Unavailable Unavailable Mollison, Karlie Kumari MD Unavailable Unavailable Jennifer Watson Unavailable ChuckTina Unavailable Dille, E Raissa DDS Unavailable Unavailable Dille, E Raissa DDS Unavailable Unavailable Dille, E Raissa DDS Unavailable Unavailable Dille, E Raissa DDS Unavailable Unavailable CAL, H BELL OIL PLANT OPERATOR Unavailable Unavailable CAL, H BELL OIL PLANT OPERATOR Unavailable Unavailable CAL, H BELL OIL PLANT OPERATOR Unavailable Unavailable CAL, H BELL OIL PLANT OPERATOR Unavailable Unavailable CAL, H BELL OIL PLANT OPERATOR Unavailable Unavailable CAL, H BELL OIL PLANT OPERATOR Unavailable Unavailable CAL, H BELL OIL PLANT OPERATOR Unavailable Unavailable Graciela Flores Unavailable Smith, Ruby OIL PLANT OPERATOR Unavailable Unavailable Smith, Ruby OIL PLANT OPERATOR Unavailable Unavailable Smith, Ruby OIL PLANT OPERATOR Unavailable Unavailable Smith, Ruby OIL PLANT OPERATOR Unavailable Unavailable Smith, Ruby OIL PLANT OPERATOR Unavailable Unavailable Smith, Ruby OIL PLANT OPERATOR Unavailable Unavailable Smith, Ruby OIL PLANT OPERATOR Unavailable Unavailable Smith, Ruby OIL PLANT OPERATOR Unavailable Unavailable Smith, Ruby OIL PLANT OPERATOR Unavailable Unavailable Smith, Ruby OIL PLANT OPERATOR Unavailable Unavailable Smith, Ruby OIL PLANT OPERATOR Unavailable Unavailable [facility], [email or web address] Unavailable Unavailable Collins Matute MD Unavailable Unavailable Collins Matute MD Unavailable Unavailable Collins Matute MD Unavailable Unavailable Collins Matute MD Unavailable Unavailable Collins Matute MD Unavailable Unavailable Collins Matute MD Unavailable Unavailable Collins Matute MD Unavailable Unavailable Collins Matute MD Unavailable Unavailable Collins Matute MD Unavailable Unavailable Collins Matute MD Unavailable Unavailable Collins Matute MD Unavailable Unavailable Collins Matute MD Unavailable Unavailable Collins Matute MD Unavailable Unavailable Collins Matute MD Unavailable Unavailable Collins Matute MD Unavailable Unavailable Collins Matute MD Unavailable Unavailable Collins Matute MD Unavailable Unavailable Collins Matute MD Unavailable Unavailable Collins Matute MD Unavailable Unavailable Ali, Collins MD Unavailable Unavailable Ali, Collins MD Unavailable Unavailable Ali, Collins MD Unavailable Unavailable Ali, Collins MD Unavailable Unavailable Ali, Collins MD Unavailable Unavailable Ali, Collins MD Unavailable Unavailable Ali, Collins MD Unavailable Unavailable Ali, Collins MD Unavailable Unavailable Ali, Collins MD Unavailable Unavailable Ali, Collins MD Unavailable Unavailable Ali, Collins MD Unavailable Unavailable Ali, Collins MD Unavailable Unavailable Ali, Collins MD Unavailable Unavailable Ali, Collins MD Unavailable Unavailable Ali, Collins MD Unavailable Unavailable Ali, Collins MD Unavailable Unavailable Ali, Collins MD Unavailable Unavailable Ali, Collins MD Unavailable Unavailable Ali, Collins MD Unavailable Unavailable Ali, Collins MD Unavailable Unavailable Ali, Collins MD Unavailable Unavailable Ali, Collins MD Unavailable Unavailable Ali, Collins MD Unavailable Unavailable Ali, Collins MD Unavailable Unavailable Ali, Collins MD Unavailable Unavailable Ali, Collins MD Unavailable Unavailable Ali, Collins MD Unavailable Unavailable Ali, Collins MD Unavailable Unavailable Ali, Collins MD Unavailable Unavailable Ali, Collins MD Unavailable Unavailable LETTIERE, A ATIYA PA Unavailable Unavailable LETTIERE, A ATIYA PA Unavailable Unavailable LETTIERE, A ATIYA PA Unavailable Unavailable LETTIERE, A ATIYA PA Unavailable Unavailable LETTIERE, A ATIYA PA Unavailable Unavailable LETTIERE, A ATIYA PA Unavailable Unavailable LETTIERE, A ATIYA PA Unavailable Unavailable LETTIERE, A ATIYA PA Unavailable Unavailable LETTIERE, A ATIYA PA Unavailable Unavailable LETTIERE, A ATIYA PA Unavailable Unavailable LETTIERE, A ATIYA PA Unavailable Unavailable LETTIERE, A ATIYA PA Unavailable Unavailable LETTIERE, A ATIYA PA Unavailable Unavailable LETTIERE, A ATIYA PA Unavailable Unavailable LETTIERE, A ATIYA PA Unavailable Unavailable LETTIERE, A ATIYA PA Unavailable Unavailable LETTIERE, A ATIYA PA Unavailable Unavailable LETTIERE, A ATIYA PA Unavailable Unavailable LETTIERE, A ATIYA PA Unavailable Unavailable LETTIERE, A ATIYA PA Unavailable Unavailable LETTIERE, A ATIYA PA Unavailable Unavailable LETTIERE, A ATIYA PA Unavailable Unavailable LETTIERE, A ATIYA PA Unavailable Unavailable LETTIERE, A ATIYA PA Unavailable Unavailable LETTIERE, A ATIYA PA Unavailable Unavailable LETTIERE, A ATIYA PA Unavailable Unavailable LETTIERE, A ATIYA PA Unavailable Unavailable LETTIERE, A ATIYA PA Unavailable Unavailable LETTIERE, A ATIYA PA Unavailable Unavailable Re-disclosure Warning The records that you are about to access may contain information from federally-assisted alcohol or drug abuse programs. If such information is present, then the following federally mandated warning applies: This information has been disclosed to you from records protected by federal confidentiality rules (42 CFR part 2). The federal rules prohibit you from making any further disclosure of this information unless further disclosure is expressly permitted by the written consent of the person to whom it pertains or as otherwise permitted by 42 CFR part 2. A general authorization for the release of medical or other information is NOT sufficient for this purpose. The Federal rules restrict any use of the information to criminally investigate or prosecute any alcohol or drug abuse patient.The records that you are about to access may contain highly sensitive health information, the redisclosure of which is protected by Article 27-F of the [facility] Public Health law. If you continue you may have access to information: Regarding HIV / AIDS; Provided by facilities licensed or operated by the [facility] Office of Mental Health; or Provided by the [facility] Office for People With Developmental Disabilities. If such information is present, then the following [facility] mandated warning applies: This information has been disclosed to you from confidential records which are protected by state law. State law prohibits you from making any further disclosure of this information without the specific written consent of the person to whom it pertains, or as otherwise permitted by law. Any unauthorized further disclosure in violation of state law may result in a fine or prison sentence or both. A general authorization for the release of medical or other information is NOT sufficient authorization for further disc losure. Allergies and Adverse Reactions Type Description Substance Reaction Status Data Source(s ) Propensity to adverse reactions to substance buspirone buspirone hydrochloride 5 MG Oral Tablet Active [facility] ([facility]) Drug allergy Invega Sustenna paliperidone Akathisia [facility]) Grapefruit Grapefruit Grapefruit Hives Active eCW1 ([facility]) isaías metz Anaphylaxis Active eCW1 ([facility]) Grapefruit Grapefruit Grapefruit Hives Active eCW1 ([facility]) isaías metz Anaphylaxis Active eCW1 ([facility]) Family History Family Member Name Family Member Gender Family Member Status Date o f Status Description Data Source(s) Unknown Unknown Problem [facility] ([facility] Unknown Unknown Problem [facility] Unknown Unknown Problem [facility] ([facility] ) Unknown Unknown Problem MED[facility] ([facility] ) Unknown Unknown Problem MEDENT ([facility], ) Encounters Encounter Providers Location Date Indications Data Source(s ) Brief Individual Psychotherapy - 30 min Attender: Tina sky [facility] 04/21/2020 12:30:00 PM EST - 04/21/2020 12:30:00 PM EST [facility] ([facility]) Attender: Tina Woods 04/21/2020 12:00:00 AM EST [facility] ([facility]) [place] [address] [address] 04/16/2020 12:00:00 AM EST eCW1 ([facility]) [place] [address] [place] [address] 04/16/2020 12:00:00 AM EST eCW1 ([facility]) Outpatient Attender: Collins Matute MD Main office - [place] 02/25/2020 12:45:00 PM EST MEDENT ([facility], ) Outpatient Attender: Ruby glass 02/20/2020 07:50:00 AM EST [facility] ([facility] TEMPMHCTelemed 30" [facility]18[facility]2020 02:00:00 AM EST - 02/18/2020 02:00:00 AM EST [facility] ([facility]) Attender: Jennifer Watson 02/18/2020 12:00:00 AM EST [facility] ([facility]) [id number]"[facility]04[facility] 11:00:00 AM EST - 02/04/2020 11:00:00 AM EST [facility] ([facility]) Attender: Jennifer Watson 02/04/2020 12:00:00 AM EST [facility] ([facility] Attender: Jennifer Watson 01/22/2020 12:00:00 AM EST [facility] ([facility]) [id number]"[facility] 01/21/2020 03:30:00 AM EST - 01/21/2020 03:30:00 AM EST [facility] ([facility]) Outpatient Attender: BELL SIMPSON NP [facility] Chang gil 01/21/2020 03:00:00 AM EST - 01/21/2020 03:00:00 AM EST [facility] ([facility]) Attender: BELL SIMPSON NP 01/21/2020 12:00:00 AM EST [facility] ([facility]) Attender: Jennifer Watson 01/08/2020 12:00:00 AM EDT [facility] ([facility]) [id number]"Psychotherapy Attender: Jennifer Watson [facility] 01/07/2020 03:00:00 AM EDT - 01/07/2020 03:00:00 AM EDT [facility] ([facility]) [place] [address] [place] [address] 12/19/2019 12:00:00 AM EDT eCW1 ([facility]) [facility] [place] [address] [place] [address] 12/19/2019 12:00:00 AM EDT eCW1 ([facility]) [id number]"[facility] 12[facility] 02:00:00 AM EDT - 12/11/2019 02:00:00 AM EDT [facility] ([facility]) Attender: Jennifer Watson 12/11/2019 12:00:00 AM EDT [facility] ([facility]) Attender: Jennifer Watson 11/27/2019 12:00:00 AM EDT [facility] ([facility]) TEMPMHCTelemed 30" Psychotherapy Attender: Jennifer Watson [facility] 11/26/2019 02:30:00 AM EDT - 11/26/2019 02:30:00 AM EDT [facility] ([facility]) Outpatient Attender: Raissa MILLER 11/20/2019 01:36:00 P M EDT [facility] Outpatient Attender: Raissa MILLER 11/20/2019 12:43:01 P M EDT [facility] Attender: Jennifer Watson 11/15/2019 12:00:00 AM EDT [facility] ([facility]) TEMPMHCTelemed 30" Psychotherapy Attender: Jennifer Watson [facility] 11/14/2019 02:30:00 AM EDT - 11/14/2019 02:30:00 AM EDT [facility] ([facility]) Outpatient Attender: Quoc Wilson/Tj/Cade/Radha walter 09/20/2019 10:30:00 AM EDT MED[facility] ([facility] Outpatient Attender: ATIYA rangel 09/12/2019 12:45:00 PM EDT [facility] Attender: BELL SIMPSON NP [facility] 09/10/2019 09:30:00 AM EDT - 09/10/2019 09:30:00 AM EDT [facility] ([facility]) Attender: BELL SIMPSON NP 09/10/2019 12:00:00 AM EDT [facility] ([facility]) [id number]"Psychotherapy Attender: Jennifer Watson [facility] 09/03/2019 11:00:00 AM EDT - 09/03/2019 11:00:00 AM EDT [facility] ([facility]) Attender: Jennifer Watson 09/03/2019 12:00:00 AM EDT [facility] ([facility]) Outpatient Attender: Raissa MILLER 08/26/2019 11:45:03 A M EDT [facility] Outpatient Attender: Raissa Turcios ELLIOT MAO 08/26/2019 11:45:03 A M EDT [facility] Outpatient Attender: Raissa Turcios [facility] 08/19/2019 02:55:01 P M EDT [facility] [id number]"Psychotherapy [facility]: [facility] 08/19/2019 03:45:00 AM EDT - 08/19/2019 03:45:00 AM EDT [facility] ([facility]) Attender: Jennifer Watson 08/19/2019 12:00:00 AM EDT [facility] ([facility]) Outpatient Attender: Ruby glass 08/09/2019 09:00:00 AM EDT [facility] Outpatient Attender: Raissa Karolina ZARATE [facility] 08/08/2019 08:54:00 A M EDT [facility] Outpatient Attender: Raissa Turcios ELLIOT [facility] 08/08/2019 08:54:00 A M EDT [facility] Outpatient Attender: Raissa Solarobinson E[facility]OT [facility] 08/08/2019 07:10:02 A M EDT [facility] Outpatient Attender: Raissa Turcios E[facility]OT [facility] 08/07/2019 04:07:00 P M EDT [facility] Outpatient Attender: Raissa Turcios [facility]OT [facility] 08/07/2019 04:04:00 P M EDT [facility] Outpatient Attender: Raissa Turcios [facility] 08/07/2019 04:03:00 P M EDT [facility] Outpatient [id number] 08/07/2019 03:56:01 PM EDT [facility] Outpatient Attender: BELL SIMPSON NP [facility] 07/30/2019 10:00:00 AM EDT - 07/30/2019 10:00:00 AM EDT [facility] ([facility]) Attender: BELL SIMPSON NP 07/30/2019 12:00:00 AM EDT [facility] ([facility]) TEMPMHCTelemed 30" Psychotherapy [facility]: [facility] 07/15/2019 04:45:00 AM EDT - 07/15/2019 04:45:00 AM EDT [facility] ([facility]) Attender: Jennifer Watson 07/15/2019 12:00:00 AM EDT [facility] ([facility]) [address] [address] 07/11/2019 12:00:00 AM EDT eCW1 ([facility]) TEMPMHCTelemed 20" psychotherapy Attender: Jennifer Watson [facility] 06/24/2019 12:55:00 PM EDT - 06/24/2019 12:55:00 PM EDT [facility] ([facility]) Attender: Jennifer Watson 06/24/2019 12:00:00 AM EDT [facility] ([facility]) [address] [address] 06/21/2019 12:00:00 AM EDT eCW1 ([facility]) Extended Individual Psychotherapy - 45 min Attender: Jennifer Watson [facility] 06/10/2019 01:00:00 AM EDT - 06/10/2019 01:00:00 AM EDT [facility] ([facility]) Attender: Jennifer Watson 06/10/2019 12:00:00 AM EDT [facility] ([facility]) Outpatient Attender: BELL SIMPSON NP [facility] Chang gil 05/13/2019 10:30:00 AM EST - 05/13/2019 10:30:00 AM EST [facility] ([facility] [address] [address] 05/13/2019 12:00:00 AM EST eCW1 ([facility]) Attender: BELL SIMPSON NP 05/13/2019 12:00:00 AM EST [facility] ([facility]) [address] [place] [address] 05/08/2019 12:00:00 AM EST eCW1 ([facility]) Extended Individual Psychotherapy - 45 min [facility] 04/18/[facility] 09:45:00 AM EST - 04/18/2019 09:45:00 AM EST [facility] ([facility]) Attender: Graciela Flores 04/18/2019 12:00:00 A M EST [facility] ([facility]) Outpatient Attender: BELL SIMPSON NP [facility] Chang jeffery 04/15/2019 08:30:00 AM EST - 04/15/2019 08:30:00 AM EST [facility] ([facility]) Attender: BELL SIMPSON NP 04/15/2019 12:00:00 AM EST [facility] ([facility]) Outpatient Attender: BELL SIMPSON NP [facility] Chang gil 04/11/2019 11:00:00 AM EST - 04/11/2019 11:00:00 AM EST [facility] ([facility]) Attender: BELL SIMPSON NP 04/11/2019 12:00:00 AM EST [facility] ([facility]) Attender: BELL SIMPSON NP 04/08/2019 12:00:00 AM EST [facility] ([facility]) Outpatient Attender: ATIYA rangel 03/27/2019 03:05:00 PM EST [facility] ([facility] [facility] Outpatient Attender: BELL SIMPSON NP [facility] gil 03/19/2019 02:15:00 AM EST - 03/19/2019 02:15:00 AM EST [facility] ([facility]) Outpatient Attender: BELL SIMPSON NP [facility] jeffery 03/14/2019 11:30:00 AM EST - 03/14/2019 11:30:00 AM EST [facility] ([facility]) Attender: BELL SIMPSON NP 03/14/2019 12:00:00 AM EST [facility] ([facility]) Brief Individual Psychotherapy - 30 min Attender: Graciela Torrez masonthiago [facility] 03/01/2019 09:00:00 AM EST - 03/01/2019 09:00:00 AM EST [facility] ([facility]) Attender: Graciela Flores 03/01/2019 12:00:00 A M EST [facility] ([facility]) Functional Status Medications Medication Brand Name Start Date Product Form Dose Route Admi nistrative Instructions Pharmacy Instructions Status Indications Reaction Description Data Source(s) Clonazepam 1 MG Oral Tablet [Klonopin] Klonopin 01/21/2020 12:0 0:00 AM EST 1 mg by mouth completed [id number] Klonopin by mouth [id number] 01/21/2020 02/20/2020 once a day 30 1 mg tablet as needed [id number] Bell Simpson [id number] Nurse Practitioner [facility] ([facility]) Sertraline 50 MG Oral Tablet [Zoloft] Zoloft 01/21/2020 12:00:00 AM EST 50 mg by mouth completed [id number] Zoloft by mouth [id number] 04/20/2020 every evening 30 50 mg tablet [id number] Bell Rudolph [id number] Nurse Practitioner [facility] ([facility]) gabapentin 100 MG Oral Capsule Gabapentin 09/20/2019 12:00:00 AM EDT ORAL active [facility] tizanidine 4 MG Oral Tablet Tizanidine HCL 09/12/2019 12:00:00 AM EDT completed [facility] ([facility]) Cyclobenzaprine hydrochloride 10 MG Oral Tablet Cyclobenzapr ine HCL 09/12/2019 12:00:00 AM EDT completed MED[facility] ([facility]) Naproxen 500 MG Oral Tablet Naproxen 09/12/2019 12:00:00 AM EDT ORAL completed [facility] ([facility]) tizanidine 4 MG Oral Tablet Tizanidine HCL 08/09/2019 12:00:00 AM EDT completed [facility] ([facility]) Acetaminophen 325 MG / Hydrocodone Bitartrate 5 MG Ora l Tablet Hydrocodone Bitartrate/Acetaminophen 08/09/2019 12:00:00 AM EDT completed [facility] ([facility]) No Active Medications 08/08/2019 12:00:00 AM EDT completed MEDENT ([facility] ) Aimovig Aimovig 08/08/2019 12:00:00 AM EDT active MED[facility] ([facility] ) rizatriptan 10 MG Oral Tablet Rizatriptan Benzoate 08/08/2019 12:00 :00 AM EDT ORAL active MEDENT ([facility], ) Azelastine HCl 0.1 % Azelastine HCl 0.1 % 07/11/2019 12:00:00 AM ED T 1.0 {puff_in_each_nostril} active Azelastin e HCl 0.1 % [facility] Vitamin D3 25 MCG (1000 UT) Vitamin D3 25 MCG (1000 UT) 06/13 12:00:00 AM EDT 1.0 {tablet} active Vitamin D3 25 MCG (1000 UT) eCW1 [facility] Azelastine HCl 0.1 % Azelastine HCl 0.1 % 07/11/2019 12:00:00 AM EDT active 1 puff in each nostril eCW1 ([facility]) Vitamin D3 25 MCG (1000 UT) Vitamin D3 25 MCG (1000 UT) 06/13 12:00:00 AM EDT 1.0 {tablet} active Vitamin D3 25 MCG (1000 UT) eCW1 [facility]) Azelastine HCl 0.1 % Azelastine HCl 0.1 % 07/11/2019 12:00:00 AM ED T 1.0 {puff_in_each_nostril} active Azelastin e HCl 0.1 % eCW1 [facility]) Vitamin D3 25 MCG (1000 UT) Vitamin D3 25 MCG (1000 UT) 06/13 12:00:00 AM EDT active 1 tablet eCW1 ([facility]) Vitamin D3 25 MCG (1000 UT) Vitamin D3 25 MCG (1000 UT) 06/13 12:00:00 AM EDT 1.0 {tablet} active Vitamin D3 25 MCG (1000 UT) eCW1 [facility]) Azelastine HCl 0.1 % Azelastine HCl 0.1 % 07/11/2019 12:00:00 AM ED T 1.0 {puff_in_each_nostril} active Azelastin e HCl 0.1 % [facility]CW[facility]) Sertraline 50 MG Oral Tablet sertraline 06/20/2019 12:00:00 AM EDT 50 mg completed [id number] sertraline 06/20/2019 09/18/2019 30 50 mg tablet [id number] Bell Simpson [id number] Nurse Practitione r [facility] ([facility]) Sertraline 50 MG Oral Tablet sertraline 06/20/2019 12:00:00 AM EDT 50 mg completed [id number] sertraline 06/20/2019 12/09/2019 30 50 mg tablet [id number] Bell Simpson [id number] Nurse Practitione r [facility] ([facility]) Clonazepam 1 MG Oral Tablet [Klonopin] Klonopin 04/15/2019 12:0 0:00 AM EST 1 mg by mouth completed [id number] Klonopin by mouth [id number] 04/15/2019 05/15/2019 once a day 30 1 mg tablet as needed [id number] Bell Simpson [id number] Nurse Practitioner [facility] ([facility]) Sertraline 50 MG Oral Tablet [Zoloft] Zoloft 04/15/2019 12:00:00 AM EST 50 mg by mouth completed [id number] Zoloft by mouth [id number] 06/14/2019 once a day 30 50 mg tablet [id number] Bell Simpson [id number] Nurse Practitioner [facility] ([facility]) Sertraline 50 MG Oral Tablet [Zoloft] Zoloft 04/15/2019 12:00:00 AM EST 50 mg by mouth completed [id number] Zoloft by mouth [id number] 06/14/2019 once a day 30 50 mg tablet [id number] Bell Simpson [id number] Nurse Practitioner [facility] ([facility]) 875-125 mg 03/27/2019 12:00:00 AM EST tablet 20 TAKE ONE TABLET BY MOUTH TWICE A DAY FOR 10 DAYS TAKE ONE TABLET BY MOUTH TWICE A DAY FOR 10 DAYS SOLD: 03/27/2019 [facility] Amoxicillin 875 MG / Clavulanate 125 MG Oral Tablet Am oxicillin/Clavulanate Potassium 03/27/2019 12:00:00 AM EST ORAL completed [facility] ([facility] pantoprazole 40 MG Delayed Release Oral Tablet pantoprazole 07/19/2018 12:00:00 AM EDT 40 mg by mouth completed [id number] pantoprazole by mouth [id number] 07/19/2018 07/14/2019 once a day 30 40 mg tablet,delayed release (DR/EC) 53988 [id number] Bell Simpson [id number] Nurse Practitioner [facility] ([facility]) pantoprazole 40 MG Delayed Release Oral Tablet pantoprazole 07/19/2018 12:00:00 AM EDT 40 mg by mouth completed [id number] pantoprazole by mouth [id number] 07/19/2018 07/14/2019 once a day 30 40 mg tablet,delayed release (DR/EC) 05977 [id number] Bell Simpson [id number] Nurse Practitioner [facility] ([facility]) pantoprazole 40 MG Delayed Release Oral Tablet pantoprazole 07/19/2018 12:00:00 AM EDT 40 mg by mouth completed [id number] pantoprazole by mouth [id number] 07/19/2018 07/14/2019 once a day 30 40 mg tablet,delayed release (DR/EC) 45182 [id number] Bell Simpson [id number] Nurse Practitioner [facility] ([facility]) pantoprazole 40 MG Delayed Release Oral Tablet pantoprazole 07/19/2018 12:00:00 AM EDT 40 mg by mouth completed [id number] pantoprazole by mouth [id number] 07/19/2018 07/14/2019 once a day 30 40 mg tablet,delayed release (DR/EC) 56984 384340 [id number] Bell Simpson [id number] Nurse Practitioner [facility] ([facility]) Insurance Providers Payer name Policy type / Coverage type Policy ID Covered republican ID Covered republican's relationship to gallardo Policy Gallardo Plan Information [facility] [id number] SP [id number] [facility] [id number] SP [id number] [place] [id number] SP [id number] MEDICARE [id number] SP [id number] A SELF PAY ONLY [id number] SP [id number] [employer] P UNAVAILABLE S UNAVAILABLE Medicaid S UNAVAILABLE S UNAVAILA BLE [facility]) O [id number] S [id number] MEDICAID M [id number] S [id number] MEDICAID [id number] SP [id number] ANSI-Not a Secondary Insurance [id number] ANSI-Medicare Part B [id number] ANSI-Medicaid [id number] ANSI-Medicare Part B [id number] ANSI-Not a Secondary Insurance [id number] ANSI-Medicaid [id number] ANSI-Not a Secondary Insurance [id number] ANSI-Medicaid [id number] ANSI-Medicare Part B [id number] ANSI-Medicaid [id number] ANSI-Not a Secondary Insurance [id number] ANSI-Medicare Part B [id number] ANSI-Medicaid [id number] ANSI-Not a Secondary Insurance [id number] ANSI-Medicare Part B [id number] ANSI-Medicare Part B [id number] ANSI-Medicaid [id number] ANSI-Not a Secondary Insurance [id number] ANSI-Not a Secondary Insurance [id number] ANSI-Medicaid [id number] ANSI-Medicare Part B [id number] [facility] Health Maintenance Organization (O) [id number] Self [id number] ANSI-Not a Secondary Insurance [id number] ANSI-Medicaid [id number] ANSI-Medicare Part B [id number] ANSI-Not a Secondary Insurance [id number] ANSI-Medicare Part B [id number] ANSI-Medicaid [id number] ANSI-Medicare Part B [id number] ANSI-Not a Secondary Insurance [id number] ANSI-Medicaid [id number] ANSI-Medicaid [id number] ANSI-Not a Secondary Insurance [id number] ANSI-Medicare Part B [id number] ANSI-Medicaid [id number] ANSI-Not a Secondary Insurance [id number] ANSI-Medicare Part B [id number] ANSI-Not a Secondary Insurance [id number] ANSI-Medicaid [id number] ANSI-Medicare Part B [id number] ANSI-Medicaid [id number] ANSI-Medicare Part B [id number] ANSI-Not a Secondary Insurance [id number] ANSI-Not a Secondary Insurance [id number] ANSI-Medicaid [id number] ANSI-Medicare Part B [id number] MEDICAID [id number] S [id number] [facility] MEDICARE DIVISION [id number] S [id number] [place]ICARE - [place] [id number] S [id number] [facility] Health Maintenance Organization ([facility]) [id number] Self [id number] ANSI-Medicaid [id number] ANSI-Medicare Part B [id number] ANSI-Not a Secondary Insurance [id number] ANSI-Not a Secondary Insurance [id number] ANSI-Medicaid [id number] ANSI-Medicare Part B [id number] ANSI-Medicaid [id number] ANSI-Medicare Part B [id number] ANSI-Not a Secondary Insurance [id number] ANSI-Medicare Part B [id number] ANSI-Medicaid [id number] ANSI-Not a Secondary Insurance [id number] [facility]) O [id number] S [id number] [facility] Health Maintenance Organization (HMO) [id number] Self [id number] MEDICARE C [id number] S [id number] A [facility] Health Maintenance Organization (HMO) [id number] Self [id number] [facility] [id number] SP [id number] MEDICARE [id number] SP [id number] [facility] C [id number] S [id number] [place]ICARE - [place] [facility] [id number] S [id number] MEDICARE [id number] SP [id number] A MEDICARE [id number] SP [id number] A Medicaid [place] Medigap Part B Self Medicare [place] Medicare Primary Self Medicaid Dental S [id number] S [id number] Medicare P [id number] S [id number] B Medicaid S [id number] S [id number] MEDICAID [id number] SP [id number] MEDICAID-O/P [id number] MEDICARE -O/P [id number] 18 [id number] A Problems, Conditions, and Diagnoses Code Display Name Description Problem Type Effective Dates Data Source(s) Z72.0 Tobacco use Tobacco Use Disorder, Mild Condition 0 04/21/2020 12:00:00 AM EST [facility] ([facility]) F33.1 Major depressive disorder, recurrent, mo derate Major Depressive Disorder, Recurrent episode, Moderate Condition 04/21/2020 12:00:00 AM EST [facility] ([facility]) 50079832 Obstructive sleep apnea syndrome Obstructive sle ep apnea syndrome Problem 02/25/2020 12:00:00 AM EST [facility] ([facility]) F84.0 Autistic disorder Autism Spectrum Disorder Condition 02/18/2020 12:00:00 AM EST [facility] ([facility]) F43.12 Post-traumatic stress disorder, chronic Post-traumatic stress disorder, chronic Condition 02/18/2020 12:00:00 AM EST [facility] ( [facility]) F33.0 Major depressive disorder, recurrent, mi ld Major Depressive Disorder, Recurrent episode, Mild Condition 02/18/2020 12:00:00 AM EST [facility] ([facility]) 525.64 Fractured dental restorative material wi th loss of material Fractured dental restorative material with loss of material 08/08/2019 08:53:55 AM EDT [facility] 99735609 Visual disturbance Visual disturbance Problem 12:00:00 AM EDT [facility] ([facility]) 025876672 Dizziness and giddiness Dizziness and giddiness Proble m 08/08/2019 12:00:00 AM EDT [facility] ([facility]) 353589016 Refractory migraine without aura Refractory migr martita without aura Problem 08/08/2019 12:00:00 AM EDT [facility] ([facility]) E78.2 032529475 Mixed hyperlipidemia Problem 07/11/2019 12:0 0:00 AM EDT [facility] E55.9 66107522 Vitamin D deficiency Problem 07/11/2019 12:0 0:00 AM EDT [facility]) E78.2 171589304 Mixed hyperlipidemia Problem 07/11/2019 12:0 0:00 AM EDT [facility]) E55.9 82772842 Vitamin D deficiency Problem 07/11/2019 12:0 0:00 AM EDT [facility]) E66.9 391792842 Obesity (BMI 30-39.9) Problem 05/08/2019 12: 00:00 AM EST [facility]) Z68.30 017677557 BMI 30.0-30.9,adult Problem 05/08/2019 12:00 :00 AM EST [facility]) K21.9 377645832 Chronic GERD Problem 05/08/2019 12:00:00 AM EST [facility]) E66.9 302640302 Obesity (BMI 30-39.9) Problem 05/08/2019 12: 00:00 AM EST [facility]) Z68.30 804798442 BMI 30.0-30.9,adult Problem 05/08/2019 12:00 :00 AM EST [facility]) K21.9 445670851 Chronic GERD Problem 05/08/2019 12:00:00 AM EST [facility]) Surgeries/Procedures Procedure Description Date Indications Data Source(s) Brief Individual Psychotherapy - 30 min 04/21/2020 12:00:00 AM EST - 04/21/2020 12:00:00 AM EST [facility] ([facility]) Brief Individual Psychotherapy - 30 min 04/21/2020 12: 00:00 AM EST [facility] ([facility]) TEMPMHCTelemed 30" Psychotherapy 020 12:00:00 AM EST - 02/18/2020 12:00:00 AM EST [facility] ([facility]) TEMPMHCTelemed 30" Psychotherapy 02/18/2020 12:00:00 A M EST [facility] ([facility]) [id number]"Psychotherapy 0 12:00:00 AM EST - 02/04/2020 12:00:00 AM EST [facility] ([facility]) [id number]"Psychotherapy 02/04/2020 12:00:00 AM EST [facility] ([facility]) [id number]"Psychotherapy 0 12:00:00 AM EST - 01/22/2020 12:00:00 AM EST [facility] ([facility]) OFFICE OUTPATIENT VISIT 15 MINUTES 01/20 12:00:00 AM EST - 01/21/2020 12:00:00 AM EST [facility] ([facility]) OFFICE OUTPATIENT VISIT 15 MINUTES 01/21/2020 12:00:00 AM EST [facility] ([facility]) [id number]"Psychotherapy 01/21/2020 12:00:00 AM EST [facility] ([facility]) [id number]"Psychotherapy 0 12:00:00 AM EDT - 01/08/2020 12:00:00 AM EDT [facility] ([facility]) [id number]"Psychotherapy 01/07/2020 12:00:00 AM EDT [facility] ([facility]) [id number]"Psychotherapy 0 12:00:00 AM EDT - 12/11/2019 12:00:00 AM EDT [facility] ([facility]) [id number]"Psychotherapy 12/11/2019 12:00:00 AM EDT [facility] ([facility]) TEMPMHCTelemed 30" Psychotherapy 12:00:00 AM EDT - 11/27/2019 12:00:00 AM EDT [facility] ([facility]) TEMPMHCTelemed 30" Psychotherapy 11/26/2019 12:00:00 A M EDT [facility] ([facility]) TEMPMHCTelemed 30" Psychotherapy 12:00:00 AM EDT - 11/15/2019 12:00:00 AM EDT [facility] ([facility]) TEMPMHCTelemed 30" Psychotherapy 11/14/2019 12:00:00 A M EDT [facility] ([facility]) THERAPEUTIC PX 1/> AREAS EACH 15 MIN EXERCISES 12:00:00 AM EDT [facility] ([facility]) MANUAL THERAPY TQS 1/> REGIONS EACH 15 MINUTES 12:00:00 AM EDT [facility] ([facility]) APPLICATION MODALITY 1/> AREAS HOT/COLD PACKS 10/23/19 12:00:00 AM EDT [facility] ([facility] ) THERAPEUTIC PX 1/> AREAS EACH 15 MIN EXERCISES 12:00:00 AM EDT [facility] ([facility] ) MANUAL THERAPY TQS 1/> REGIONS EACH 15 MINUTES 12:00:00 AM EDT [facility] ([facility] ) THERAPEUTIC PX 1/> AREAS EACH 15 MIN EXERCISES 12:00:00 AM EDT [facility] ([facility] ) MANUAL THERAPY TQS 1/> REGIONS EACH 15 MINUTES 12:00:00 AM EDT [facility] ([facility] ) Electrical Stimulation Unattended 10/14/2019 12:00:00 AM EDT [facility] ([facility] ) THERAPEUTIC PX 1/> AREAS EACH 15 MIN EXERCISES 12:00:00 AM EDT [facility] ([facility] ) MANUAL THERAPY TQS 1/> REGIONS EACH 15 MINUTES 12:00:00 AM EDT [facility] ([facility] ) Physical Therapy Eval - Mod Complexity 10/09/2019 12:0 0:00 AM EDT [facility] ([facility] ) RADEX SPINE LUMBOSACRAL MINIMUM 4 VIEWS 09/20/2019 12: 00:00 AM EDT [facility] ([facility] ) MHC Telemed E/M Lvl 3--Est pt 09/10/2019 12:00:00 AM EDT - 09/10/2019 12:00:00 AM EDT [facility] ([facility]) Psychotherapy ADD ON - 30 Minutes 09/10/2019 12:00:00 AM EDT [facility] ([facility]) MHC Telemed E/M Lvl 3--Est pt 09/10/2019 12:00:00 AM E DT [facility] ([facility]) [id number]"Psychotherapy 0 12:00:00 AM EDT - 09/03/2019 12:00:00 AM EDT [facility] ([facility]) [id number]"Psychotherapy 09/03/2019 12:00:00 AM EDT [facility] ([facility]) [id number]"Psychotherapy 0 12:00:00 AM EDT - 08/19/2019 12:00:00 AM EDT [facility] ([facility]) [id number]"Psychotherapy 08/19/2019 12:00:00 AM EDT [facility] ([facility]) Magnetic Resonance Angiogtaphy Head W/O Contrast Material(S) 08/09/2019 12:00:00 AM EDT [facility] ([facility] Magnetic Resonance Angiogtaphy Head W/O Contrast Material(S) 08/09/2019 12:00:00 AM EDT [facility] ([facility] MRI BRAIN BRAIN STEM W/O CONTRAST MATERIAL 08/09/2019 12:00:00 AM EDT [facility] ([facility] MRI BRAIN BRAIN STEM W/O CONTRAST MATERIAL 08/09/2019 12:00:00 AM EDT [facility] ([facility] MHC Telemed E/M Lvl 3--Est pt 07/30/2019 12:00:00 AM EDT - 07/30/2019 12:00:00 AM EDT [facility] ([facility]) MHC Telemed E/M Lvl 3--Est pt 07/30/2019 12:00:00 AM E DT [facility] ([facility]) TEMPMHCTelemed 30" Psychotherapy 020 12:00:00 AM EDT - 07/15/2019 12:00:00 AM EDT [facility] ([facility]) TEMPMHCTelemed 30" Psychotherapy 07/15/2019 12:00:00 A M EDT [facility] ([facility]) Office Visit, Est Pt., Level 2 FC 07/11/2019 12:00:00 AM EDT [facility] Visit, Est Pt., Level 4 PC 07/11/2019 12:00:00 AM EDT [facility]CW[facility] TEMPMHCTelemed 20" psychotherapy 020 12:00:00 AM EDT - 06/24/2019 12:00:00 AM EDT [facility] ([facility]) TEMPMHCTelemed 20" psychotherapy 06/24/2019 12:00:00 A M EDT [facility] ([facility]) Extended Individual Psychotherapy - 45 min 06/10/2019 12:00:00 AM EDT - 06/10/2019 12:00:00 AM EDT [facility] ([facility]) Extended Individual Psychotherapy - 45 min 0 12:00:00 AM EDT [facility] ([facility]) OFFICE OUTPATIENT VISIT 15 MINUTES 05/12 12:00:00 AM EST - 05/13/2019 12:00:00 AM EST [facility] ([facility]) OFFICE OUTPATIENT VISIT 15 MINUTES 05/13/2019 12:00:00 AM EST [facility] ([facility]) Extended Individual Psychotherapy - 45 min 04/18/2019 12:00:00 AM EST - 04/18/2019 12:00:00 AM EST [facility] ([facility]) Extended Individual Psychotherapy - 45 min 0 12:00:00 AM EST [facility] ([facility]) OFFICE OUTPATIENT VISIT 15 MINUTES 04/15 12:00:00 AM EST - 04/15/2019 12:00:00 AM EST [facility] ([facility]) Psychotherapy ADD ON - 30 Minutes 04/15/2019 12:00:00 AM EST [facility] ([facility]) OFFICE OUTPATIENT VISIT 15 MINUTES 04/15/2019 12:00:00 AM EST [facility] ([facility]) OFFICE OUTPATIENT VISIT 15 MINUTES 04/11 12:00:00 AM EST - 04/11/2019 12:00:00 AM EST [facility] ([facility]) OFFICE OUTPATIENT VISIT 15 MINUTES 04/11/2019 12:00:00 AM EST [facility] ([facility]) OFFICE OUTPATIENT VISIT 15 MINUTES 04/08 12:00:00 AM EST - 04/08/2019 12:00:00 AM EST [facility] ([facility] OFFICE OUTPATIENT VISIT 15 MINUTES 03/19/2019 12:00:00 AM EST [facility] ([facility]) OFFICE OUTPATIENT VISIT 15 MINUTES 03/14 12:00:00 AM EST - 03/14/2019 12:00:00 AM EST [facility] ([facility]) OFFICE OUTPATIENT VISIT 15 MINUTES 03/14/2019 12:00:00 AM EST [facility] ([facility]) Brief Individual Psychotherapy - 30 min 03/01/2019 12:00:00 AM EST - 03/01/2019 12:00:00 AM EST [facility] ([facility]) Brief Individual Psychotherapy - 30 min 03/01/2019 12: 00:00 AM EST [facility] ([facility]) Results ID Date Data Source [id number] 04/19/2020 10:30:00 AM EST [facility] Name Value Range Interpretation Code Description Data Martha rce(s) Supporting Document(s) SARS coronavirus 2 RNA Not Detected [facility] This lab was ordered by [facility] and reported by [facility]. ID Date Data Source [id number] 02/20/2020 10:01:00 AM EST [facility] ([facility]) Name Value Range Interpretation Code Description Data Martha rce(s) Supporting Document(s) Bacteria identified in Urine by Culture Laboratory test result [facility]) No Rx ID Date Data Source [id number] 02/20/2020 12:00:00 AM EST [facility] Name Value Range Interpretation Code Description Data Martha rce(s) Supporting Document(s) SARS coronavirus 2 Ag [facility] This lab was ordered by [facility] and reported by [facility]. ID Date Data Source [id number] 11/20/2019 12:29:35 PM EDT [facility] Current Problems: Fractured dental artem rative material with loss of material (ICD-525.64) (AWS17-R23.531)Diseases of hard tissues of teeth, abrasion, limited to enamel (ICD-521.21) (IFW10-V83.1)Dental caries (ICD-521.0)Trunk, insect bite, nonvenomous, without mention of infection (ICD-316315261)Trunk, insect bite, nonvenomous, without mention of infection (ICD-284599470)FH WEIGHT DISORDER (ICD-V19.8)FH PSYCHIATRIC CARE (ICD-V17.0) (ZOG61-I94.8)FH LUNG CANCER (ICD-V16.1) (OZG06-W77.1)FH HEADACHES (ICD-V19.8)FH OTHER CANCER (ICD-V16.9) (UYD74-A81.9)FH STROKE (ICD-V17.1) (CMD83-X94.3)FAMILY HISTORY OF SEVERE ALLERGIES (ICD-V19.6)FH MIGRAINES (ICD-V19.8)FH HIGH CHOLESTEROL (ICD-V18.19) (WAQ14-A22.49)FH HYPERTENSION (ICD-V17.49) (FPO86-T22.49)FH HEART DISEASE (ICD- V17.49) (BRR48-I66.49)FH DIABETES (ICD-V18.0) (DTV61-F27.3)FH DEPRESSION (ICD- V17.0) (DRS20-Z76.8)FAMILY HISTORY OF ASTHMA (ICD-V17.5) (RIF04-R38.5)FH OF ANXIETY (ICD-V17.0) (QKZ43-H75.8)FH OF ANESTHETIC COMPLICATIONS (ICD- V19.8)FAMILY HISTORY OF ALCOHOLISM (ICD-V61.41) (KAY57-B72.72)HYPERTENSION (ICD- 401.9) (YSE03-F44)DEPRESSION (ICD-311) (OWS68-L26.9)ANXIETY DISORDER (ICD- 300.00) (GLL97-L76.9)Current Medications: * PROPONOLOL * OMEPRAZOLE ZOLOFT 100 MG ORAL TABLET (SERTRALINE HCL) 1 tab po dailyMedication list reviewed during this update.Current Allergies: * SLEEPING PILLS (Critical)* LATEX (Critical)CECLOR (Severe)Allergy list reviewed during this update. Dental Chart: Procedures:Type - CDT Code - Description B - (D0230) Intraoral, periapical, each additional radiographic image on Tooth # 6 (Performed by Dionna Rose DMD) B - (D0140) Limited oral evaluation - problem focused on Tooth # 6 (Performed by Dionna Rose DMD) B - (D0220) Intraoral, periapical, first radiographic image on Tooth # 8 (Performed by Dionna Rose DMD) Chart Alert:mcdProphy 1 per 6 month periodchild through age 12adult 13+next has an apt 05/30/2016Exam 1 per 6 month periodnext avail has an apt 05/30/2016Fl2 1 per 6 month periodthrough age 20next availBwx 4 films per 6 month periodnext avail 05/30/2016Panorex 1 every 3 yearsnext avail no historySealants every 5 yearsage 5-15Debridement and scaling okProbing not cove redAfter perio maintenance has been started all prophy's need to be billedcode #[id number] 2 times per year Chart Notes:karen (Nov 20 2019 1:34PM): Additional PPE requirements due to COVID-19 in the dental setting, N95, surgical mask, hair covering, gown and shield.S: CC:"i have to have someone look because i just lost a tooth, and want to mkae sure everythings alright. "O: RMHx (-) HPI: lastnig ht PL: no pain BP: 183/101 Taken again 10 minutes later 159/101 #8,9 mobility. option one extraction of #7,8,9,10 and partial. another option 3 unit bridgeinformed pt insurance may not cover. PA Taken #6 and PA#8.,9A: DDS recommends refferal for evaluation for upper partial. , DX: Fractured tooth on #7 and #10P: Referral for anterior upper partialInformed pt that he needs to see his primary Dr. for his BP it is very high. Informed Pt about new pain management policy of the clinic regarding about narcotic,told pt to alternate Ibuprophen 600- 800mg and tylenol 500mg every 4 to 6 hrs for pain when needed. Assisted By:RENETTA NV: RecallLam Dionna WILD by karen (11/20/2019 1:34 PM): Tooth Notes and Watches:- Tooth 10 Note: Referred to have crown redone, fractured on lingualDille Raissa ZARATE by hema (08/08/2019 8:34 AM): - Tooth 15 Watch: iLvier Mccurdy by afromeliauson (11/27/2015 3:11 PM): - Tooth 17 Watch: Kaz Livier by aferguson (11/27/2015 3:26 PM): - Tooth 18 Watch: Livier Byers by aferguson (11/27/2015 3:27 PM): - Tooth 28 Watch: Modesta Livier by aferguson (11/27/2015 3:10 PM): - Tooth 6 Watch: Livier Mccurdy by aferguson (11/27/2015 3:10 PM): - Tooth 9 Note: RCT and W/ post and crown, sent to have RCT redoneDsanjeev Raissa ZARATE by hema (08/08/2019 8:33 AM): Assessment & Plan Medications:PROPONOLOLOMEPRAZOLEZOLOFT 100 MG ORAL TABLETAllergies:* SLEEPING PILLS (Critical)* LATEX (Critical)CECLOR (Severe)Orders:Multi-Service Referral [CPT-65673] Name Value Range Interpretation Code Description Data Martha rce(s) Supporting Document(s) ID Date Data Source [id number] 10/03/2019 12:00:00 AM EDT [facility] Quoc Lopez MD Patient Name: JAMEY DEJA [id number] [facility] Date of : 1985Suite Date of Exam: 10/03/2019KAMALA Vidal [id number]#: Fax: [phone] EXAM: MRI LUMBAR SPINE WITHOUT CONTRASTPROCEDURE INFORMATION:Exam: MR Lumbar Spine Without Contrast.Exam date and time: 10/03/2019 8:04 AM Age: 34 years oldClinical indication: Low back painTECHNIQUE: Imaging protocol: Multiplanar magnetic resonance images of thelumbar spine without intravenous contrast.COMPARISON: No relevant prior studies available.FINDINGS:There is mild congenital spinal canal stenosis.Vertebrae: There is what likely represents a small hemangioma in the [id number].Spinal cord: Normal signal. No cord compression.L1-L2: No significant disc disease. No significant spinal canal stenosis.No neural foraminal stenosis. L2-L3: No significant disc disease. Nosignificant spinal canal stenosis. No neural foraminal stenosis. L3-L4:There is mild disc bulging. There is mild spinal canal stenosis. There isfacet arthropathy and ligamentum flavum hypertrophy. There is mildbilateral neuroforaminal narrowing.L4-L5: There is moderate disc bulging, partial toward the right. There is asmall superimposed right foraminal disc herniation at this level. There ismild/moderate bilateral neuroforaminal narrowing, right worse than left.There is mild spinal canal stenosis. There is facet arthropathy andligamentum flavum hypertrophy.L5-S1: No significant disc disease. No significant spinal canal stenosis.No neural foraminal stenosis.Soft tissues: Unremarkable.IMPRESSION: Mild congenital spinal canal stenosis. Mild degenerative discchanges at L3/4 and L4/5 as described above.Thank you for allowing us to participate in the care of your patient.Dictated and Authenticated by: Maury Mendoza MD 10/03/2019 8:55 AM [facility] ([place] & [place])ChristineV/Gersonk you for referring DEJA CONCEPCION to our office. Electronically Signed - CHRISTINE 10/03/19 9:02 Name Value Range Interpretation Code Description Data Martha rce(s) Supporting Document(s) ID Date Data Source [id number] 08/08/2019 07:58:06 AM EDT [facility] Current Problems: Fractured dental artem rative material with loss of material (ICD-525.64) (ZCZ43-L59.531)Diseases of hard tissues of teeth, abrasion, limited to enamel (ICD-521.21) (QVO92-N27.1)Dental caries (ICD-521.0)Trunk, insect bite, nonvenomous, without mention of infection (ICD-310852972)Trunk, insect bite, nonvenomous, without mention of infection (ICD-132363024)FH WEIGHT DISORDER (ICD-V19.8)FH PSYCHIATRIC CARE (ICD-V17.0) (GAG86-Q05.8)FH LUNG CANCER (ICD- V16.1) (ASM80-I97.1)FH HEADACHES (ICD-V19.8)FH OTHER CANCER (ICD-V16.9) (ICD10- Z80.9)FH STROKE (ICD-V17.1) (JGE60-M08.3)FAMILY HISTORY OF SEVERE ALLERGIES (ICD-V19.6)FH MIGRAINES (ICD-V19.8)FH HIGH CHOLESTEROL (ICD-V18.19) (ICD10- Z83.49)FH HYPERTENSION (ICD-V17.49) (NSA42-D06.49)FH HEART DISEASE (ICD-V17.49) (XLB56-L31.49)FH DIABETES (ICD-V18.0) (TSY70-F74.3)FH DEPRESSION (ICD-V17.0) (NGE86-L27.8)FAMILY HISTORY OF ASTHMA (ICD-V17.5) (PNK63-O36.5)FH OF ANXIETY (ICD-V17.0) (CNE36-R85.8)FH OF ANESTHETIC COMPLICATIONS (ICD-V19.8)FAMILY HIS TORY OF ALCOHOLISM (ICD-V61.41) (XVU33-X79.72)HYPERTENSION (ICD-401.9) (ICD10- I10)DEPRESSION (ICD-311) (ZZL23-M50.9)ANXIETY DISORDER (ICD-300.00) (ICD10- F41.9)Problem list reviewed during this update.Current Medications: * PROPONOLOL * OMEPRAZOLE ZOLOFT 100 MG ORAL TABLET (SERTRALINE HCL) 1 tab po dailyMedication list reviewed during this update.Current Allergies: * SLEEPING PILLS (Critical)* LATEX (Critical)CECLOR (Severe)Allergy list reviewed during this update. Dental Chart: Procedures:Type - CDT Code - Description B - (D0220) Intraoral, periapical, first radiographic image on Tooth # 10 (Performed by Raissa Turcios DDS) B - (D0140) Limited oral evaluation - problem focused on Tooth # 10 (Performed by Raissa Turcios DDS) Chart Alert:mcdProphy 1 per 6 month periodchild through age 12adult 13+next has an apt 05/30/2016Exam 1 per 6 month periodnext avail has an apt 05/30/2016Fl2 1 per 6 month periodthrough age 20next availBwx 4 films per 6 month periodnext avail 05/30/2016Panorex 1 every 3 yearsnext avail no historySealants every 5 yearsage 5-15Debridement and scaling okProbing not coveredAfter perio maintenance has been started all prophy's need to be billedcode #[id number] 2 times per year Chart Notes:cecilia (Aug 08 2019 8:53AM): S: CC:" The tooth I was supposed to have a RCT in and the tooth next to it are haveing severe pain it has been going on for two weeks. The root canals were done at [facility] and I reefuse to go back" " Then I went to the Dentist that was going to do the RCT and they treated me worse than a dog." O: RMHx (-)Per Pt HPI: [address]: 9-91/2 BP: 170/113 P: 81. Spoke to Pt about BP, should see PCP. # 9 has existing RCT with post and core and crown, has PAP, positive to palpation. # 9 has existing RCt post and core and crown. [place] is broken in lingual. A: DDS recommends Redo RCT on #9 and Have [place] on #10 redone or ext. , DX: F# 10 ractured crown, # 9 failed RCT P:Refere to Multi service DDS for Redo of RCT on #9 and Redo a crown 0n #10Patient states he is taking ammoxicillin Clav from another DDS he would not tell whom.Informed Pt about new pain management policy of the clinic regarding about narcotic,told pt to alternate Ibuprophen 600- 800mg and tylenol 500mg every 4 to 6 hrs for pain when needed. Assisted By: PDNV: Raissa Russo DDS by cecilia (08/08/2019 8:53 AM): Tooth Notes and Watches:- Tooth 10 Note: Referred to have crown redone, fractured on lingualDille Raissa ZARATE by hema (08/08/2019 8:34 AM): - Tooth 15 Watch: Livier Mccurdy by melanie (11/27/2015 3:11 PM): - Tooth 17 Watch: Livier Mccurdy by melanie (11/27/2015 3:26 PM): - Tooth 18 Watch: Livier Byers by melanie (11/27/2015 3:27 PM): - Tooth 28 Watch: Livier Byers by melanie (11/27/2015 3:10 PM): - Tooth 6 Watch: Livier Mccurdy by melanie (11/27/2015 3:10 PM): - Tooth 9 Note: RCT and W/ post and crown, sent to have RCT redoneDille Raissa ZARATE by hema (08/08/2019 8:33 AM): Assessment & Plan Problems:Added: Fractured dental restorative material with loss of material (ICD-525.64) (GIS17-N40.531)Medications:PROPONOLOLOMEPRAZOLEZOLOFT 100 MG ORAL TABLETAllergies:* SLEEPING PILLS (Critical)* LATEX (Critical)CECLOR (Severe)Orders:Multi-Service Referral [CPT-22417] Name Value Range Interpretation Code Description Data Martha rce(s) Supporting Document(s) Procedure Social History Code Duration Value Status Description Data Source(s ) Smoking 04/21/2020 12:00:00 AM EST Unknown if ever smoked comp leted Unknown if ever smoked [facility] ([facility]) Smoking 02/20/2020 12:00:00 AM EST Patient is a former smoker completed Patient is a former smoker [facility] ([facility] Smoking 02/18/2020 12:00:00 AM EST Unknown if ever smoked comp leted Unknown if ever smoked [facility] ([facility]) Smoking 02/04/2020 12:00:00 AM EST Unknown if ever smoked comp leted Unknown if ever smoked [facility] ([facility]) Smoking 01/22/2020 12:00:00 AM EST Unknown if ever smoked comp leted Unknown if ever smoked [facility] ([facility]) Smoking 01/21/2020 12:00:00 AM EST Unknown if ever smoked comp leted Unknown if ever smoked [facility] ([facility]) Smoking 01/08/2020 12:00:00 AM EDT Unknown if ever smoked comp leted Unknown if ever smoked [facility] ([facility]) Smoking 12/11/2019 12:00:00 AM EDT Unknown if ever smoked comp leted Unknown if ever smoked [facility] ([facility]) Smoking 11/27/2019 12:00:00 AM EDT Unknown if ever smoked comp leted Unknown if ever smoked [facility] ([facility]) Smoking 11/15/2019 12:00:00 AM EDT Unknown if ever smoked comp leted Unknown if ever smoked [facility] ([facility]) Smoking 09/10/2019 12:00:00 AM EDT Unknown if ever smoked comp leted Unknown if ever smoked [facility] ([facility]) Smoking 09/03/2019 12:00:00 AM EDT Unknown if ever smoked comp leted Unknown if ever smoked [facility] ([facility]) Smoking 08/19/2019 12:00:00 AM EDT Unknown if ever smoked comp leted Unknown if ever smoked [facility] ([facility]) Smoking 07/30/2019 12:00:00 AM EDT Unknown if ever smoked comp leted Unknown if ever smoked [facility] ([facility]) Smoking 07/15/2019 12:00:00 AM EDT Unknown if ever smoked comp leted Unknown if ever smoked [facility] ([facility]) Smoking 07/11/2019 12:00:00 AM EDT Former Smoker completed [facility] Smoking 07/11/2019 12:00:00 AM EDT Former Smoker completed Former Smoker [facility]) Smoking 07/11/2019 12:00:00 AM EDT Former Smoker completed Former Smoker [facility]) Smoking 06/24/2019 12:00:00 AM EDT Unknown if ever smoked comp leted Unknown if ever smoked [facility] ([facility]) Smoking 06/10/2019 12:00:00 AM EDT Unknown if ever smoked comp leted Unknown if ever smoked [facility] ([facility]) Smoking 05/13/2019 12:00:00 AM EST Unknown if ever smoked comp leted Unknown if ever smoked [facility] ([facility]) Smoking 04/18/2019 12:00:00 AM EST Unknown if ever smoked comp leted Unknown if ever smoked [facility] ([facility]) Smoking 04/15/2019 12:00:00 AM EST Unknown if ever smoked comp leted Unknown if ever smoked [facility] ([facility]) Smoking 04/11/2019 12:00:00 AM EST Unknown if ever smoked comp leted Unknown if ever smoked [facility] ([facility]) Smoking 04/08/2019 12:00:00 AM EST Unknown if ever smoked comp leted Unknown if ever smoked [facility] ([facility]) Smoking 03/14/2019 12:00:00 AM EST Unknown if ever smoked comp leted Unknown if ever smoked [facility] ([facility]) Smoking 03/01/2019 12:00:00 AM EST Unknown if ever smoked comp leted Unknown if ever smoked [facility] ([facility]) Vital Signs ID Date Data Source UNK Name Value Range Interpretation Code Description Data Source(s) Body surface area Derived from formula 2.09 m2 2.09 m2 [facility] Body weight 96.163 kg 96.163 kg [facility] ([facility]) [place] body weight 154 [lb_av] 154 [lb_av] [facility] ([facility]) Body mass index (BMI) [Ratio] 32.2 kg/m2 32.2 k g/m2 [facility] ([facility]) Body weight 212.00 [lb_av] 212.00 [lb_av] [facility] ([facility]) Body height 68 [in_i] 68 [in_i] [facility] ([facility]) 5'8" Diastolic blood pressure 80 mm[Hg] 80 mm[Hg] [facility] ([facility]) Systolic blood pressure 150 mm[Hg] 150 mm[Hg] [facility] ([facility]) Body mass index (BMI) [Ratio] 31.2 kg/m2 31.2 k g/m2 [facility] ([facility]) Body height 68 [in_i] 68 [in_i] [facility] ([facility]) 5'8" Body weight 205.00 [lb_av] 205.00 [lb_av] [facility] ([facility]) Body temperature 98.2 [degF] 98.2 [degF] [facility] ([facility]) Oxygen saturation in Arterial blood by Pulse oximetry 96 % 96 % [facility] ([facility]) Respiratory rate 20 /min 20 /min [facility] ( [facility]) Heart rate 95 /min 95 /min [facility] ([facility]) Diastolic blood pressure 92 mm[Hg] 92 mm[Hg] [facility] ([facility]) Systolic blood pressure 130 mm[Hg] 130 mm[Hg] [facility]) Diastolic blood pressure 0 mm[Hg] Normal (applies to non-numeric results) 0 mm[Hg] [facility]) Systolic blood pressure 0 mm[Hg] Normal (applies t o non-numeric results) 0 mm[Hg] [facility]) Body mass index (BMI) [Ratio] 0.00 kg/m2 No rmal (applies to non-numeric results) 0.00 kg/m2 [facility] ([facility]) Body weight Measured 0.00 lbs Normal (applies to n on-numeric results) 0.00 lbs [facility] ([facility]) Body height 0.00 in Normal (applies to non-numeric resu lts) 0.00 in [facility] ([facility]) Body surface area Derived from formula 2.07 m2 2.07 m2 [facility] ([facility]) Body weight 92.988 kg 92.988 kg [facility] ([facility]) [place] body weight 154 [lb_av] 154 [lb_av] [facility] ([facility]) Body mass index (BMI) [Ratio] 31.2 kg/m2 31.2 k g/m2 [facility] ([facility]) Body weight 205.00 [lb_av] 205.00 [lb_av] [facility] ([facility]) Body height 68 [in_i] 68 [in_i] [facility] ([facility]) 5'8" Body temperature 97.3 [degF] 97.3 [degF] [facility] ([facility]) Body mass index (BMI) [Ratio] 31.5 kg/m2 31.5 k g/m2 [facility] ([facility]) Body height 68 [in_i] 68 [in_i] [facility] ([facility]) 5'8" Body weight 207.00 [lb_av] 207.00 [lb_av] [facility] ([facility]) Body temperature 98.3 [degF] 98.3 [degF] [facility] ([facility]) Oxygen saturation in Arterial blood by Pulse oximetry 97 % 97 % [facility] ([facility]) Heart rate 88 /min 88 /min [facility] ([facility]) Diastolic blood pressure 97 mm[Hg] 97 mm[Hg] [facility] ([facility]) Systolic blood pressure 160 mm[Hg] 160 mm[Hg] [facility] ([facility]) Diastolic blood pressure 0 mm[Hg] Normal (applies to non-numeric results) 0 mm[Hg] [facility] ([facility]) Systolic blood pressure 0 mm[Hg] Normal (applies t o non-numeric results) 0 mm[Hg] [facility] ([facility]) Body mass index (BMI) [Ratio] 0.00 kg/m2 No rmal (applies to non-numeric results) 0.00 kg/m2 [facility]) Body weight Measured 0.00 lbs Normal (applies to n on-numeric results) 0.00 lbs [facility] ([facility]) Body height 0.00 in Normal (applies to non-numeric resu lts) 0.00 in [facility] ([facility]) Body mass index (BMI) [Ratio] 31.2 kg/m2 31.2 k g/m2 [facility] ([facility]) Body height 68 [in_i] 68 [in_i] [facility] ([facility]) 5'8" Body weight 205.00 [lb_av] 205.00 [lb_av] [facility] ([facility]) Body temperature 99.0 [degF] 99.0 [degF] [facility] ([facility]) Oxygen saturation in Arterial blood by Pulse oximetry 99 % 99 % [facility] ([facility]) Heart rate 97 /min 97 /min [facility] ([facility]) Diastolic blood pressure 103 mm[Hg] 103 mm[Hg] [facility] ([facility]) Systolic blood pressure 153 mm[Hg] 153 mm[Hg] [facility] ([facility] [place] body weight 154 [lb_av] 154 [lb_av] [facility] ([facility]) Body mass index (BMI) [Ratio] 30.6 kg/m2 30.6 k g/m2 [facility] ([facility]) Body weight 201.00 [lb_av] 201.00 [lb_av] [facility] ([facility]) Body height 68 [in_i] 68 [in_i] [facility] ([facility]) 5'8" Diastolic blood pressure 80 mm[Hg] 80 mm[Hg] [facility] Systolic blood pressure 130 mm[Hg] 130 mm[Hg] e CW1 ([facility]) Body temperature 97.4 [degF] 97.4 [degF] [facility] ( [facility]) Respiratory rate 18 /min 18 /min eCW1 ([facility]) Heart rate 88 /min 88 /min eCW1 ([facility]) Body mass index (BMI) [Ratio] 30.86 kg/m2 30.86 kg/m2 [facility] ([facility]) Body height 68.5 [in_us] 68.5 [in_us] eCW1 ([facility]) Body weight Measured 206 [lb_av] 206 [lb_av] eC W1 ([facility]) Diastolic blood pressure 70 mm[Hg] 70 mm[Hg] [facility]CW1 ([facility]) Systolic blood pressure 124 mm[Hg] 124 mm[Hg] e CW1 ([facility]) Body temperature 98.4 [degF] 98.4 [degF] [facility]CW1 ( [facility]) Respiratory rate 18 /min 18 /min eCW1 ([facility]) Heart rate 96 /min 96 /min eCW1 ([facility]) Body mass index (BMI) [Ratio] 30.56 kg/m2 30.56 kg/m2 [facility]CW[facility]) Body height 68.5 [in_us] 68.5 [in_us] eCW1 ([facility]) Body weight Measured 204.0 [lb_av] 204.0 [lb_av ] [facility]CW1 [facility]) Diastolic blood pressure 0 mm[Hg] Normal (applies to non-numeric results) 0 mm[Hg] [facility] ([facility]) Systolic blood pressure 0 mm[Hg] Normal (applies t o non-numeric results) 0 mm[Hg] [facility] ([facility]) Body mass index (BMI) [Ratio] 0.00 kg/m2 No rmal (applies to non-numeric results) 0.00 kg/m2 [facility] ([facility]) Body weight Measured 0.00 lbs Normal (applies to n on-numeric results) 0.00 lbs [facility] ([facility]) Body height 0.00 in Normal (applies to non-numeric resu lts) 0.00 in [facility]) Body mass index (BMI) [Ratio] 28.1 kg/m2 28.1 k g/m2 [facility] ([facility]) Body height 69 [in_i] 69 [in_i] [facility] ([facility]) 5'9" Body weight 190.00 [lb_av] 190.00 [lb_av] [facility] ([facility]) Body temperature 98.5 [degF] 98.5 [degF] [facility] ([facility]) Oxygen saturation in Arterial blood by Pulse oximetry 98 % 98 % [facility] ([facility]) Respiratory rate 18 /min 18 /min [facility] ( [facility]) Heart rate 71 /min 71 /min [facility] ([facility]) Diastolic blood pressure 111 mm[Hg] 111 mm[Hg] [facility] ([facility]) Systolic blood pressure 153 mm[Hg] 153 mm[Hg] [facility] ([facility]) Diastolic blood pressure 0 mm[Hg] Normal (applies to non-numeric results) 0 mm[Hg] [facility] ([facility]) Systolic blood pressure 0 mm[Hg] Normal (applies t o non-numeric results) 0 mm[Hg] [facility] ([facility]) Body mass index (BMI) [Ratio] 0.00 kg/m2 No rmal (applies to non-numeric results) 0.00 kg/m2 [facility] ([facility]) Body weight Measured 0.00 lbs Normal (applies to n on-numeric results) 0.00 lbs [facility] ([facility]) Body height 0.00 in Normal (applies to non-numeric resu lts) 0.00 in [facility] ([facility]) Patient Treatment Plan of Care Planned Activity Planned Date Details Description Data Source (s) Azelastine HCl 0.1 % 07/11/2019 12:00:00 AM EDT [facility] Vitamin D3 25 MCG (1000 UT) 07/11/2019 12:00:00 AM EDT [facility] ([facility]) Azelastine HCl 0.1 % 07/11/2019 12:00:00 AM EDT [facility] ([facility]) Vitamin D3 25 MCG (1000 UT) 07/11/2019 12:00:00 AM EDT [facility]CW[facility] ([facility]) Vitamin D3 25 MCG (1000 UT) 07/11/2019 12:00:00 AM EDT [facility] ([facility]) Azelastine HCl 0.1 % 07/11/2019 12:00:00 AM EDT [facility] ([facility]) Azelastine HCl 0.1 % 07/11/2019 12:00:00 AM EDT [facility]CW[facility] ([facility]) Vitamin D3 25 MCG (1000 UT) 07/11/2019 12:00:00 AM EDT [facility]CW[facility] ([facility])
[2020-04-24] MEDS ORDERED: propofoL 200 MG/20 ML VIAL As Ordered ONE (10:18)
--- NOTE | 2020-04-24 10:42 | ROOR ---
Patient Name: Devon Krishnan Procedure Date: 04/24/2020 9:47 AM Date of : 1985 Age: 34 Room: [facility] Gender: Male Note Status: Finalized Procedure: Upper GI endoscopy Indications: Suspected gastro-esophageal reflux disease Providers: Huan Nieves MD Referring MD: Catarina Dee NP Requesting Provider: Medicines: Monitored Anesthesia Care Complications: No immediate complications. Procedure: Pre-Anesthesia Assessment: - Prior to the procedure, a History and Physical was performed, and patient medications and allergies were reviewed. The patient is competent. The risks and benefits of the procedure and the sedation options and risks were discussed with the patient. All questions were answered and informed consent was obtained. Patient identification and proposed procedure were verified by the physician, the nurse and the anesthesiologist in the procedure room. Mental Status Examination: alert and oriented. Airway Examination: normal oropharyngeal airway and neck mobility. Respiratory Examination: clear to auscultation. CV Examination: normal. Prophylactic Antibiotics: The patient does not require prophylactic antibiotics. Prior Anticoagulants: The patient has taken no previous anticoagulant or antiplatelet agents. ASA Grade Assessment: II - A patient with mild systemic disease. After reviewing the risks and benefits, the patient was deemed in satisfactory condition to undergo the procedure. The anesthesia plan was to use monitored anesthesia care (MAC). Immediately prior to administration of medications, the patient was re-assessed for adequacy to receive sedatives. The heart rate, respiratory rate, oxygen saturations, blood pressure, adequacy of pulmonary ventilation, and response to care were monitored throughout the procedure. The physical status of the patient was re-assessed after the procedure. The Endoscope was introduced through the mouth, and advanced to the second part of duodenum. The upper GI endoscopy was accomplished without difficulty. The patient tolerated the procedure well. Findings: LA Grade A (one or more mucosal breaks less than 5 mm, not extending between tops of 2 mucosal folds) esophagitis with no bleeding was found 38 to 39 cm from the incisors. Biopsies were taken with a cold forceps for histology. Verification of patient identification for the specimen was done by the physician and nurse using the patient's name, date and medical record number. Estimated blood loss was minimal. Scattered severe inflammation characterized by erosions, friability and granularity was found in the gastric antrum. Biopsies were taken with a cold forceps for histology. Biopsies were taken with a cold forceps for Helicobacter pylori testing. The duodenal bulb and second portion of the duodenum were normal. Impression: - LA Grade A reflux esophagitis. Rule out Miranda's esophagus. Biopsied. - Gastritis. Biopsied. - Normal duodenal bulb and second portion of the duodenum. Recommendation: - Patient has a contact number available for emergencies. The signs and symptoms of potential delayed complications were discussed with the patient. Return to normal activities tomorrow. Written discharge instructions were provided to the patient. - High fiber diet and Anti-acid reflux diet -- small meals, sit upright atleast 1 hour after meals, avoid fatty/ oily foods and avoid foods that cause reflux. - Continue present medications. - Follow an antireflux regimen. - Await pathology results. - Telephone GI clinic for pathology results in 2 weeks. - Return to primary care physician. Procedure Code(s): --- Professional --- 03808, Esophagogastroduodenoscopy, flexible, transoral; with biopsy, single or multiple Diagnosis Code(s): --- Professional --- K21.0, Gastro-esophageal reflux disease with esophagitis K29.70, Gastritis, unspecified, without bleeding CPT copyright 2019 [employer]. All rights reserved. The codes documented in this report are preliminary and upon net application support specialist review may be revised to meet current compliance requirements. Huan Nieves MD Huan Nieves MD 04/24/2020 10:42:52 AM Electronically signed by Huan Nieves MD Number of Addenda: 0 Note Initiated On: 04/24/2020 9:47 AM Estimated Blood Loss: Estimated blood loss was minimal.
--- NOTE | 2020-04-24 10:46 | ROOR ---
Patient Name: Devon Krishnan Procedure Date: 04/24/2020 9:47 AM Date of : 1985 Age: 34 Room: [facility] Gender: Male Note Status: Finalized Procedure: Colonoscopy Indications: Hematochezia Providers: Huan Nieves MD Referring MD: Catarina Dee NP Requesting Provider: Medicines: Monitored Anesthesia Care Complications: No immediate complications. Procedure: Pre-Anesthesia Assessment: - Prior to the procedure, a History and Physical was performed, and patient medications and allergies were reviewed. The patient is competent. The risks and benefits of the procedure and the sedation options and risks were discussed with the patient. All questions were answered and informed consent was obtained. Patient identification and proposed procedure were verified by the physician, the nurse and the anesthesiologist in the procedure room. Mental Status Examination: alert and oriented. Airway Examination: normal oropharyngeal airway and neck mobility. Respiratory Examination: clear to auscultation. Prophylactic Antibiotics: The patient does not require prophylactic antibiotics. Prior Anticoagulants: The patient has taken no previous anticoagulant or antiplatelet agents. ASA Grade Assessment: II - A patient with mild systemic disease. After reviewing the risks and benefits, the patient was deemed in satisfactory condition to undergo the procedure. The anesthesia plan was to use monitored anesthesia care (MAC). Immediately prior to administration of medications, the patient was re-assessed for adequacy to receive sedatives. The heart rate, respiratory rate, oxygen saturations, blood pressure, adequacy of pulmonary ventilation, and response to care were monitored throughout the procedure. The physical status of the patient was re-assessed after the procedure. The Colonoscope was introduced through the anus and advanced to the terminal ileum, with identification of the appendiceal orifice and IC valve. The colonoscopy was performed without difficulty. The patient tolerated the procedure well. The quality of the bowel preparation was good. The terminal ileum, ileocecal valve, appendiceal orifice, and rectum were photographed. Scope insertion time was 2 minutes. Scope withdrawal time was 8 minutes. The total duration of the procedure was 10 minutes. Findings: The perianal and digital rectal examinations were normal. The terminal ileum appeared normal. Diffuse mild mucosal changes characterized by erythema, granularity and loss of vascularity were found in the entire colon. Biopsies for histology were taken with a cold forceps from the right colon, left colon and rectosigmoid colon for evaluation of microscopic colitis. Verification of patient identification for the specimen was done by the physician and nurse using the patient's name, date and medical record number. Estimated blood loss was minimal. Non-bleeding external and internal hemorrhoids were found during retroflexion. The hemorrhoids were small. Impression: - The examined portion of the ileum was normal. - Diffuse mild mucosal changes were found in the entire examined colon secondary to colitis. Biopsied. - Non-bleeding external and internal hemorrhoids. Recommendation: - Patient has a contact number available for emergencies. The signs and symptoms of potential delayed complications were discussed with the patient. Return to normal activities tomorrow. Written discharge instructions were provided to the patient. - High fiber diet. - Continue present medications. - Await pathology results. - Repeat colonoscopy at age 49 for screening purposes. - Telephone GI clinic for pathology results in 2 weeks. - Return to primary care physician. Procedure Code(s): --- Professional --- 90396, Colonoscopy, flexible; with biopsy, single or multiple Diagnosis Code(s): --- Professional --- K64.8, Other hemorrhoids K52.9, Noninfective gastroenteritis and colitis, unspecified K92.1, Melena (includes Hematochezia) CPT copyright 2019 [employer]. All rights reserved. The codes documented in this report are preliminary and upon content director review may be revised to meet current compliance requirements. Huan Nieves MD Huan Nieves MD 04/24/2020 10:46:01 AM Electronically signed by Huan Nieves MD Number of Addenda: 0 Note Initiated On: 04/24/2020 9:47 AM Estimated Blood Loss: Estimated blood loss was minimal.
[2020-04-24 11:08] VITALS: BP 153/89
== END 2020-04-24 14:35 | disposition left against medical advice (07) ==
LOC: M OPP 08:36
PROVIDERS: ATTEND Internal Medicine Gastroenterology
DX: K92.1 Melena (principal); K21.00 Gastro-esophageal reflux disease with esophagitis, without bleeding; D12.6 Benign neoplasm of colon, unspecified; K52.9 Noninfective gastroenteritis and colitis, unspecified; K64.8 Other hemorrhoids; K29.70 Gastritis, unspecified, without bleeding; D13.0 Benign neoplasm of esophagus; R12 Heartburn; G43.909 Migraine, unspecified, not intractable, without status migrainosus; J45.909 Unspecified asthma, uncomplicated; G47.30 Sleep apnea, unspecified; F17.290 Nicotine dependence, other tobacco product, uncomplicated; F41.9 Anxiety disorder, unspecified; F32.9 Major depressive disorder, single episode, unspecified; K85.90 Acute pancreatitis without necrosis or infection, unspecified; F43.10 Post-traumatic stress disorder, unspecified; L40.9 Psoriasis, unspecified; Z88.1 Allergy status to other antibiotic agents; Z91.018 Allergy to other foods; Z91.09 Other allergy status, other than to drugs and biological substances; Z79.899 Other long term (current) drug therapy; Z82.49 Family history of ischemic heart disease and other diseases of the circulatory system; Z80.8 Family history of malignant neoplasm of other organs or systems
CPT/HCPCS: 43239; 45380; 88305; J3010

== ENCOUNTER → 2021-06-17 | Outpatient (CLI) | payer MEDICARE, MEDICAID ==
[~2021-06-17] MED LIST changes: -LIDOCAINE 2% 100MG/5ML SDV (FOR ANES.) As Ordered ONE; -NS 1,000 ML IV ONE; -fentaNYL 100 MCG/2 ML INJECTION (J3010) As Ordered ONE; -propofoL 200 MG/20 ML VIAL As Ordered ONE
[2021-06-17 16:17] LABS: ALBUMIN 4.4 GM/DL (3.2-5.2); ALT/SGPT 49 U/L (12-78); BILIRUBIN,TOTAL 0.6 MG/DL (0.2-1.0); BLOOD UREA NITROGEN 12 MG/DL (7-18); CALCIUM LEVEL 9.4 MG/DL (8.5-10.1); CARBON DIOXIDE LEVEL 27 MEQ/L (21-32); CHLORIDE LEVEL 109 MEQ/L (98-107); CHOLESTEROL LEVEL 227 MG/DL (<200); CHOLESTEROL RISK RATIO 5.536 (<5); CREATININE FOR GFR 1.06 MG/DL (0.70-1.30); GLOMERULAR FILTRATION RATE > 60.0 (>60); GLUCOSE, FASTING 94 MG/DL (70-100); HDL CHOLESTEROL 41 MG/DL (>40); LDL CHOLESTEROL 146 MG/DL (<100); NON-HDL-C 186 MG/DL; POTASSIUM SERUM 3.8 MEQ/L (3.5-5.1); SODIUM LEVEL 142 MEQ/L (136-145); TOTAL PROTEIN 7.7 GM/DL (6.4-8.2); TRIGLYCERIDES LEVEL 201 MG/DL (<150)
[2021-06-17 16:24] LABS: TOTAL 25(OH) VITAMIN D 28.3 NG/ML (30.0-100.0)
== END ==
LOC: M PLALAB 11:32
PROVIDERS: ATTEND Physician Assistant
DX: E78.2 Mixed hyperlipidemia (principal); E55.9 Vitamin D deficiency, unspecified; G43.709 Chronic migraine without aura, not intractable, without status migrainosus

== ENCOUNTER → 2022-02-01 | Outpatient (REF) | payer OTHER, MEDICAID ==
[~2022-02-01] MED LIST changes: +CLON1TAB8; +VALT1TAB PO
[2022-02-01 12:56] LABS: BASO % 0.3 % (0.0-1.0); EOS # 0.3 10^3/uL (0.0-0.5); EOS % 2.7 % (0.0-3.0); LYMPH # 3.6 10^3/uL (1.5-5.0); LYMPH % 39.2 % (24.0-44.0); MEAN CORPUSCULAR HEMOGLOBIN 28.9 pg (27.0-33.0); MEAN CORPUSCULAR VOLUME 87.7 fl (80.0-96.0); MONO # 0.6 10^3/uL (0.0-0.8); NEUTROPHILS # 4.7 10^3/uL (1.5-8.5); NEUTROPHILS % 51.5 % (36.0-66.0); PLATELET COUNT, AUTOMATED 275 10^3/uL (150-450); WHITE BLOOD COUNT 9.2 10^3/uL (4.0-10.0)
[2022-02-01 13:03] LABS: HEMOGLOBIN 17.4 g/dl (13.5-17.5); RED BLOOD COUNT 6.02 10^6/uL (4.30-6.10)
[2022-02-01 13:04] LABS: HEMATOCRIT 52.8 % (42.0-52.0)
[2022-02-01 13:41] LABS: ALBUMIN 4.5 G/DL (3.2-5.2); ALT/SGPT 22 U/L (7.0-40); BILIRUBIN,TOTAL 0.6 MG/DL (0.3-1.2); BLOOD UREA NITROGEN 13 MG/DL (9-23); CALCIUM LEVEL 9.7 MG/DL (8.5-10.1); CARBON DIOXIDE LEVEL 26 MMOL/L (20-31); CHLORIDE LEVEL 103 MMOL/L (98-107); CHOLESTEROL LEVEL 171 MG/DL (<200); CHOLESTEROL RISK RATIO 4.17 (<5); CREATININE FOR GFR 0.93 MG/DL (0.70-1.30); GLOMERULAR FILTRATION RATE > 60.0 (>60); GLUCOSE, FASTING 86 MG/DL (60-100); LDL CHOLESTEROL 93.6 MG/DL (<100); NON-HDL-C 130 MG/DL; POTASSIUM SERUM 4.7 MMOL/L (3.5-5.1); SODIUM LEVEL 140 MMOL/L (136-145); THYROID STIMULATING HORMONE 0.712 uIU/ML (0.55-4.78); TOTAL 25(OH) VITAMIN D 44.2 NG/ML (20.0-100.0); TOTAL PROTEIN 7.2 G/DL (5.7-8.2); TRIGLYCERIDES LEVEL 182 MG/DL (<150)
[2022-02-01 14:01] LABS: HEMOGLOBIN A1c 5.2 % (4.0-6.0)
== END ==
LOC: M LAB REF 12:30
PROVIDERS: ATTEND Nurse Practitioner Family
DX: Z13.228 Encounter for screening for other metabolic disorders (principal)

== ENCOUNTER → 2023-01-17 | Outpatient (REF) | payer OTHER, MEDICAID ==
[~2023-01-17] MED LIST changes: -AKWASOL OU; +ARTIDRO2 OU; -BENZ-52 PO; +BENZ1TAB5 PO
[2023-01-17 18:53] LABS: BASO % 0.4 % (0.0-1.0); EOS # 0.4 10^3/uL (0.0-0.5); EOS % 4.7 % (0.0-3.0); HEMATOCRIT 53.5 % (42.0-52.0); HEMOGLOBIN 18.1 g/dl (13.5-17.5); LYMPH # 2.8 10^3/uL (1.5-5.0); LYMPH % 38.1 % (24.0-44.0); MEAN CORPUSCULAR HGB CONC 33.8 g/dl (32.0-36.5); MEAN CORPUSCULAR VOLUME 88.6 fl (80.0-96.0); MONO # 0.5 10^3/uL (0.0-0.8); MONO % 7.1 % (2.0-8.0); NEUTROPHILS # 3.7 10^3/uL (1.5-8.5); NEUTROPHILS % 49.3 % (36.0-66.0); PLATELET COUNT, AUTOMATED 199 10^3/uL (150-450); RED BLOOD COUNT 6.04 10^6/uL (4.30-6.10); WHITE BLOOD COUNT 7.4 10^3/uL (4.0-10.0)
[2023-01-17 18:58] LABS: ALBUMIN 4.2 G/DL (3.2-5.2); ALKALINE PHOSPHATASE 52 U/L (46-116); ALT/SGPT 32 U/L (7.0-40); AST/SGOT 22 U/L (<34); BILIRUBIN,TOTAL 0.3 MG/DL (0.3-1.2); BLOOD UREA NITROGEN 23 MG/DL (9-23); CALCIUM LEVEL 8.9 MG/DL (8.5-10.1); CARBON DIOXIDE LEVEL 26 MMOL/L (20-31); CHLORIDE LEVEL 103 MMOL/L (98-107); CHOLESTEROL LEVEL 197 MG/DL (<200); CHOLESTEROL RISK RATIO 4.17 (<5); CREATININE FOR GFR 0.84 MG/DL (0.70-1.30); GLOMERULAR FILTRATION RATE > 60.0 (>60); GLUCOSE, FASTING 78 MG/DL (60-100); HDL CHOLESTEROL 47.2 MG/DL (>40); LDL CHOLESTEROL 106.8 MG/DL (<100); NON-HDL-C 149.8 MG/DL; SODIUM LEVEL 141 MMOL/L (136-145); TOTAL PROTEIN 7.1 G/DL (5.7-8.2); TRIGLYCERIDES LEVEL 215 MG/DL (<150)
== END ==
LOC: M LAB REF 16:41
PROVIDERS: ATTEND Nurse Practitioner Family
DX: Z13.228 Encounter for screening for other metabolic disorders (principal); Z79.899 Other long term (current) drug therapy

== ENCOUNTER → 2023-12-26 | Outpatient (REF) | payer MEDICARE, MEDICAID ==
[~2023-12-26] MED LIST changes: -KLON1TAB PO; +KLON1TAB13 PO
[2023-12-26 12:47] LABS: ALBUMIN 4.5 G/DL (3.2-5.2); ALKALINE PHOSPHATASE 47 U/L (46-116); ALT/SGPT 36 U/L (7.0-40); AST/SGOT 20 U/L (<34); BASO % 0.4 % (0.0-1.0); BILIRUBIN,TOTAL 1.1 MG/DL (0.3-1.2); BLOOD UREA NITROGEN 13 MG/DL (9-23); CALCIUM LEVEL 9.7 MG/DL (8.5-10.1); CARBON DIOXIDE LEVEL 30 MMOL/L (20-31); CHLORIDE LEVEL 105 MMOL/L (98-107); CHOLESTEROL LEVEL 233 MG/DL (<200); CREATININE FOR GFR 0.91 MG/DL (0.70-1.30); EOS # 0.3 10^3/uL (0.0-0.5); EOS % 3.1 % (0.0-3.0); GLOMERULAR FILTRATION RATE > 60.0 (>60); GLUCOSE, FASTING 95 MG/DL (60-100); HDL CHOLESTEROL 45.6 MG/DL (>40); HEMATOCRIT 52.9 % (42.0-52.0); HEMOGLOBIN 17.7 g/dl (13.5-17.5); LDL CHOLESTEROL 137.4 MG/DL (<100); LYMPH # 2.4 10^3/uL (1.5-5.0); LYMPH % 29.4 % (24.0-44.0); MAGNESIUM LEVEL 1.8 MG/DL (1.8-2.4); MEAN CORPUSCULAR HEMOGLOBIN 29.2 pg (27.0-33.0); MEAN CORPUSCULAR HGB CONC 33.5 g/dl (32.0-36.5); MEAN CORPUSCULAR VOLUME 87.1 fl (80.0-96.0); MONO # 0.5 10^3/uL (0.0-0.8); MONO % 6.5 % (2.0-8.0); NEUTROPHILS # 4.8 10^3/uL (1.5-8.5); NON-HDL-C 187.4 MG/DL; PLATELET COUNT, AUTOMATED 198 10^3/uL (150-450); POTASSIUM SERUM 4.3 MMOL/L (3.5-5.1); RED BLOOD COUNT 6.07 10^6/uL (4.30-6.10); SODIUM LEVEL 138 MMOL/L (136-145); TOTAL PROTEIN 7.5 G/DL (5.7-8.2); TRIGLYCERIDES LEVEL 250 MG/DL (<150)
[2023-12-26 12:48] LABS: THYROID STIMULATING HORMONE 0.859 uIU/ML (0.55-4.78)
[2023-12-26 12:49] LABS: TOTAL 25(OH) VITAMIN D 35.3 NG/ML (20.0-100.0)
[2023-12-26 14:07] LABS: HEMOGLOBIN A1c 5.1 % (4.0-6.0)
== END ==
LOC: M LAB REF 12:03
PROVIDERS: ATTEND Nurse Practitioner Family
DX: E66.3 Overweight (principal); E07.9 Disorder of thyroid, unspecified

== ENCOUNTER → 2024-05-03 | Outpatient (REF) | payer MEDICARE, MEDICAID | LOC: M LAB REF 16:07 | PROVIDERS: ATTEND Student in an Organized Health Care Education/Training Program | DX: Z01.84 Encounter for antibody response examination (principal) ==

== ENCOUNTER → 2024-09-18 | Outpatient (REF) | payer MEDICARE, MEDICAID ==
[~2024-09-18] MED LIST changes: +DEPA250T PO; -DEPA250T2 PO
[2024-09-18 14:36] LABS: CHOLESTEROL LEVEL 142.0 MG/DL (<200); CHOLESTEROL RISK RATIO 3.57 (<5); LDL CHOLESTEROL 85.1 MG/DL (<100); NON-HDL-C 102.3 MG/DL; TRIGLYCERIDES LEVEL 86.0 MG/DL (<150)
== END ==
LOC: M LAB REF 13:46
PROVIDERS: ATTEND Nurse Practitioner Family
DX: E78.5 Hyperlipidemia, unspecified (principal)

== ENCOUNTER → 2025-01-17 | Outpatient (REF) | payer MEDICARE, MEDICAID ==
[~2025-01-17] MED LIST changes: -DIPH50CA PO; +DIPH50CA31 PO
[2025-01-17 18:20] LABS: ALT/SGPT 24 U/L (7.0-40); AST/SGOT 21 U/L (<34); CALCIUM LEVEL 9.1 MG/DL (8.5-10.1); CARBON DIOXIDE LEVEL 29 MMOL/L (20-31); CHLORIDE LEVEL 101 MMOL/L (98-107); CHOLESTEROL LEVEL 213 MG/DL (<200); CHOLESTEROL RISK RATIO 3.61 (<5); CREATININE FOR GFR 0.95 MG/DL (0.70-1.30); GLOMERULAR FILTRATION RATE > 90.0 (>60); LDL CHOLESTEROL 122.0 MG/DL (<100); NON-HDL-C 154.0 MG/DL; POTASSIUM SERUM 4.7 MMOL/L (3.5-5.1); SODIUM LEVEL 140 MMOL/L (136-145); TRIGLYCERIDES LEVEL 160 MG/DL (<150)
[2025-01-17 18:24] LABS: TOTAL 25(OH) VITAMIN D 48.6 NG/ML (20.0-100.0)
== END ==
LOC: M LAB REF 17:06
PROVIDERS: ATTEND Nurse Practitioner Family
DX: E78.5 Hyperlipidemia, unspecified (principal); E55.9 Vitamin D deficiency, unspecified